=== PATIENT | male | born 1975 | race African-American/Black ===

== ENCOUNTER 2022-05-02 12:59 | Outpatient (REF) | payer OTHER, SELFPAY ==
[2022-05-02 14:19] LABS: Hematocrit 49.3 % (42.0-52.0); Hemoglobin 17.4 g/dl (14.0-18.0); Mean Corpuscular HGB Conc 35.3 g/dl (31.0-36.0); Mean Corpuscular Hemoglobin 28.6 pg (27.0-33.0); Mean Corpuscular Volume 81.1 fL (80.0-98.0); Mean Platelet Volume 10.7 fL (9.4-12.4); Platelet Count 227 X10*3/uL (160-400); Red Blood Count 6.08 X10*6/uL (4.60-5.80); Red Cell Distribution Width 11.9 % (11.0-16.0); White Blood Count 4.1 X10*3/uL (4.8-10.8)
[2022-05-02 15:01] LABS: Alanine Aminotransferase 23 U/L (0-40); Albumin Level 4.5 g/dL (3.5-5.0); Alkaline Phosphatase 100 U/L (39-117); Anion Gap 13 (12-20); Aspartate Amino Transferase 19 U/L (5-37); Bilirubin Direct 0.2 mg/dL (0.0-0.5); Bilirubin Total 0.8 mg/dL (0.0-1.0); Blood Urea Nitrogen 10 mg/dL (9-16); Calcium 9.9 mg/dL (8.4-10.2); Carbon Dioxide 30 mmol/L (22-29); Chloride 99 mmol/L (96-108); Estimated Glomerular Filt Rate > 60; Glucose Random 335 mg/dL (60-115); Potassium 4.5 mmol/L (3.3-5.1); Sodium 137 mmol/L (135-145)
== END 2022-05-02 13:00 | disposition home or self-care (01) ==
LOC: HO.HMGCLDS 12:59
PROVIDERS: Visit Provider Internal Medicine
DX: R10.9 Unspecified abdominal pain (principal)
CPT/HCPCS: 36415; 80048; 80076; 85027

== ENCOUNTER 2022-05-04 08:08 | Outpatient (REF) | payer OTHER, SELFPAY ==
[2022-05-04 13:04] LABS: Hemoglobin A1c % > 14.0 %
== END 2022-05-04 08:09 | disposition home or self-care (01) ==
LOC: HO.HMGCLDS 08:08
PROVIDERS: Visit Provider Internal Medicine
DX: E11.9 Type 2 diabetes mellitus without complications (principal)
CPT/HCPCS: 36415; 83036

== ENCOUNTER 2022-08-11 06:19 | Outpatient (REF) | payer OTHER, SELFPAY ==
[2022-08-11 12:51] LABS: Hematocrit 45.6 % (42.0-52.0); Hemoglobin 15.3 g/dl (14.0-18.0); Mean Corpuscular HGB Conc 33.6 g/dl (31.0-36.0); Mean Corpuscular Volume 86.4 fL (80.0-98.0); Mean Platelet Volume 9.7 fL (9.4-12.4); Platelet Count 270 X10*3/uL (160-400); Red Blood Count 5.28 X10*6/uL (4.60-5.80); Red Cell Distribution Width 12.6 % (11.0-16.0); White Blood Count 4.3 X10*3/uL (4.8-10.8)
[2022-08-11 13:01] LABS: Estimated Average Glucose 180 mg/dL; Hemoglobin A1c % 7.9 %
[2022-08-11 13:20] LABS: Alanine Aminotransferase 16 U/L (0-40); Alkaline Phosphatase 81 U/L (39-117); Anion Gap 12 (12-20); Aspartate Amino Transferase 19 U/L (5-37); Bilirubin Total 0.5 mg/dL (0.0-1.0); Blood Urea Nitrogen 9 mg/dL (9-16); Carbon Dioxide 26 mmol/L (22-29); Chloride 105 mmol/L (96-108); Cholesterol 193 mg/dL; Estimated Glomerular Filt Rate > 60; Glucose Fasting 181 mg/dL (60-99); HDL Cholesterol 32 mg/dL; LDL Cholesterol Calculated 123 mg/dl; Potassium 4.6 mmol/L (3.3-5.1); Sodium 138 mmol/L (135-145); Total Protein 7.3 g/dL (6.5-8.0); Triglycerides 190 mg/dL
== END 2022-08-11 06:20 | disposition home or self-care (01) ==
LOC: HO.HMGCLDS 06:19
PROVIDERS: Visit Provider Nurse Practitioner Family
DX: E11.9 Type 2 diabetes mellitus without complications (principal)
CPT/HCPCS: 36415; 80053; 80061; 83036; 85027

== ENCOUNTER → 2022-09-26 13:51 | Outpatient (BNVA) | payer OTHER, SELFPAY | PROVIDERS: PCP Nurse Practitioner Family; Visit Provider Internal Medicine Endocrinology, Diabetes & Metabolism | DX: E11.9 Type 2 diabetes mellitus without complications (principal); Z79.84 Long term (current) use of oral hypoglycemic drugs | CPT/HCPCS: 82947 ==

== ENCOUNTER 2022-12-12 08:57 | Outpatient (REF) | payer OTHER, SELFPAY ==
[2022-12-12 12:01] LABS: Creatinine Urine 240.48 mg/dL; Microalbum/Creatinine Ratio Ur 13.7 ug/mg cr
[2022-12-12 12:17] LABS: Estimated Average Glucose 140 mg/dL; Hemoglobin A1c % 6.5 %
[2022-12-16 19:13] LABS: Glutamic acid decarboxylase Ab <5 IU/mL (<5)
== END 2022-12-12 08:58 | disposition home or self-care (01) ==
LOC: HO.HMGCLDS 08:57
PROVIDERS: Absent Provider Internal Medicine Endocrinology, Diabetes & Metabolism; PCP Nurse Practitioner Family; Visit Provider Nurse Practitioner Family
DX: E11.9 Type 2 diabetes mellitus without complications (principal)
CPT/HCPCS: 36415; 82043; 83036; 86341

== ENCOUNTER 2022-12-12 13:40 | Outpatient (AMB) | payer OTHER, SELFPAY ==
--- NOTE | 2022-12-12 14:33 | A.OFFVIS_ITS ---
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 Accompanied by: Self / Same As Patient Allergies No Known Allergies Allergy (Verified 11/17/22 15:27) HPI Comprehensive Diabetes Asmnt Most Recent Diabetes Results: Microalb/Creat Ratio 13.7 ug/mg cr 12/12/22 Cholesterol 193 mg/dL 08/11/22 HDL Cholesterol 32 mg/dL 08/11/22 Triglycerides 190 mg/dL 08/11/22 Creatinine 1.15 mg/dL (0.5-1.4) 08/11/22 Blood Urea Nitrogen 9 mg/dL (9-16) 08/11/22 Sodium 138 mmol/L (135-145) 08/11/22 Potassium 4.6 mmol/L (3.3-5.1) 08/11/22 Chloride 105 mmol/L (96-108) 08/11/22 Carbon Dioxide 26 mmol/L (22-29) 08/11/22 Calcium 9.0 mg/dL (8.4-10.2) 08/11/22 AST 19 U/L (5-37) 08/11/22 ALT 16 U/L (0-40) 08/11/22 Total Protein 7.3 g/dL (6.5-8.0) 08/11/22 Albumin 4.0 g/dL (3.5-5.0) 08/11/22 [facility] Social History Housing: Apartment Patient Tobacco Use Status: Never used Tobacco e-Cigarette/Vaping Use: Never Used Second Hand Smoke Exposure: No service: No Current occupational status: employed Current occupational exposures/hazards: No Cognitive needs: No Hearing needs: No Vision needs: No Assessment & Plan Assessment & Plan (1) Diabetes mellitus: Code(s): E11.9 - Type 2 diabetes mellitus without complications Plan: Learning objectives: The patient was provided with verbal and written education on the following topics as outlined below. The patient met all learning objectives and was able to verbalize understanding and provide teach back of education topics discussed . The patient was provided with the opportunity to ask questions and all questions were answered. Patient Assessment Assess patient education level/literacy/barriers Patient questions/concerns, patient was diagnosed with diabetes in April 2022 with A1c greater than 14 %, patient's last a1c from today 6.5%. Patient reports he has made significant changes to his diet including eliminating regular soda f ruit juice and large carbohydrate portions. Patient has also bought a smart watch that uses infrared technology to read glucose through his skin. Discussed with patient that this is not an FDA appro nunu med for testing glucose. 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 This is his primary mode of physical activity What is Diabetes? Pathophysiology How the body produces and uses insulin Identify type of DM Risk factors Signs of Diabetes Brief overview of Diabetes Management Monitoring blood sugar Following a meal plan Regular exercise Maintaining a healthy weight Taking medication as needed Members of the care team (PCP, RN, MA, RD, CDE, diffusion operator) Blood glucose monitoring When/how often to test Target blood sugar ranges Patient has freestyle meter, however he uses infrared glucose watch to read his glucose Introduction to Nutrition Importance of healthy diet in managing DM Diet is personalized to individual preference Review patient?s regular diet/food preferences Who prepares meals/does food shopping/ Dining out?/ Barriers? How diet effects glucose Eating 3 balanced meals a day with small, healthy snacks between meals Review food groups Carbohydrates: What is a carbohydrate/Which food/food groups are considered carbohydrates Effect of carbohydrates on blood glucose Portion sizes Reading food labels Basic carb counting (if applicable per nursing assessment) Plate method Meal planning Recommendations: Follow plate method, consistent carbs and read nutritional labels. Smart Goal: Patient will continue to keep carbohydrate portions at meals between 45-60 g of carbs, if eating larger meals patient states he will exercise 15-20 minutes after Educational Materials: The patient was provided with the following written educational materials: Planning Healthy Meals Handout Patient Response to instructions: Comprehension of Instructions: Fair Readiness to make changes: Contemplation How confident they feel about making changes: fair Patient Instructions: Include regular daily activity. ADA recommends 30 minutes of exercise 5 days a week. Weight loss talk to PCP or Dinner Cook before starting new plan. Test blood sugar as directed; Fasting and 2hpp largest meal. Watch trends in results. Utilize results and to assess how food, physical activity and medications affect blood sugar results. Bring glucometer or CGM to next visit. Be knowledgeable about diabetes medication, its action, side effects, efficacy, toxicity, prescribed dosage, appropriate timing and frequency of administration, effect of missed and delayed doses and instructions for storage, travel and safety. Coding Level of Care Code Est Pt Level 1 (42753) Diagnoses Diabetes mellitus E11.9
== END 2022-12-12 14:36 | disposition home or self-care (01) ==
PROVIDERS: PCP Nurse Practitioner Family; Visit Provider Registered Nurse Diabetes Educator
DX: E11.9 Type 2 diabetes mellitus without complications (principal)
CPT/HCPCS: 99211

== ENCOUNTER 2023-02-05 13:59 | Outpatient (AMB) | payer OTHER, SELFPAY ==
[2023-02-05 14:08] VITALS: BMI 27.7
--- NOTE | 2023-02-05 14:08 | A.OFFVIS_ITS ---
Intake VS Expanded 02/05/23 14:08 Height 5 ft 10 in Weight 192 lb 14.472 oz BMI 27.7 Intake Visit Reasons: Diabetes Allergies No Known Allergies Allergy (Verified 11/17/22 15:27) HPI Nutrition Presentation Details Pt presents for MNT for T2DM. 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 Pt reports doing well. Reports physically active at work. Meals consist of B: water, often skips L: rice/beans/chicken or beef stew D: same as lunch snack: nuts, fruits (reports reducing on fried foods and pastries like foods) Physical activity : >1 hr per day walking/lifting eTOH: denies smoking: denies from AafrOatmeal Gabriella food frequency fruits: 2-3 /d starches > 16 serving/d fish 0-1/d, poultry /beef/eggs vegetables: prefers nons tarhcy veg dairy: 2servings/ EJR-Miodqaq-Ym.Jeor Equation Height 5 ft 10 in Weight 193 lb Resting Metabolic Rate 1749.73 Calculated Activity Level Moderate Activity Calories Needed to Maintain Weight 2712.08 Diagnosis Nutrition problem #1 food nutri know defi As related to (etiology) #1 diagnosis As evidenced by (sign/symptom) #1 no prior educ - nutri rec Monitoring/Goals Nutrition problem monitoring level of knowledge/skill Nutrition goal/outcome list 3 high fiber foods Outcome progress verbalized understanding Learning/Education Readiness to learn excellent Stages of change action Educational materials provided Yes (meal planning) Most Recent Diabetes Results: Microalb/Creat Ratio 13.7 ug/mg cr 12/12/22 Cholesterol 193 mg/dL 08/11/22 HDL Cholesterol 32 mg/dL 08/11/22 Triglycerides 190 mg/dL 08/11/22 Creatinine 1.15 mg/dL (0.5-1.4) 08/11/22 Blood Urea Nitrogen 9 mg/dL (9-16) 08/11/22 Sodium 138 mmol/L (135-145) 08/11/22 Potassium 4.6 mmol/L (3.3-5.1) 08/11/22 Chloride 105 mmol/L (96-108) 08/11/22 Carbon Dioxide 26 mmol/L (22-29) 08/11/22 Calcium 9.0 mg/dL (8.4-10.2) 08/11/22 AST 19 U/L (5-37) 08/11/22 ALT 16 U/L (0-40) 08/11/22 Total Protein 7.3 g/dL (6.5-8.0) 08/11/22 Albumin 4.0 g/dL (3.5-5.0) 08/11/22 [facility] Social History Housing: Apartment Patient Tobacco Use Status: Never used Tobacco e-Cigarette/Vaping Use: Never Used Second Hand Smoke Exposure: No service: No Current occupational status: employed Current occupational exposures/hazards: No Cognitive needs: No Hearing needs: No Vision needs: No Assessment & Plan Assessment & Plan (1) Diabetes mellitus: Code(s): E11.9 - Type 2 diabetes mellitus without complications Plan: wt: 88 kg Est kcal needs as per MSJ: 2700 (40% carb, 30% protein/fat) Est fluid needs as per 25-30 ml/d: 2200 Est prot per day as per 1 g/kg bw: 88 Recommend fiber intake : 8-10 g per day and gradually increase to 25-28 g per day for women and 35-38 g for men or as tolerated Recommend sodium intake per day : less than 2000 mg Educated patient on: ( R = reviewed V = verbalizes understanding N/R = needs review N/A = not applicable * Food sources of carbohydrate, adequate serving sizes and its role in various health conditions: R * Differences between complex carbohydrates a simple carbohydrates, role of fiber in diet: R * Differences between types of fats and role in diet (mono on saturated fat fatty acids, saturated fatty acids, trans fats): NR * Food sources of sodium in salt and healthy modifications for heart health in kidney health: NR * Healthy plate method concept: R * Physical activity: Benefits a precaution: R V * Hypoglycemia protocol (rule of 15): R * Dietary prevention of Hyperglycemia: R Patient Instructions: Follow healthy plate method , including fiber rich foods keep hydrated by having water with meals include at least 2 servings of calcium in your diet (milk/yogurt/seeds/beans/lentils/chickpeas, canned fishwith bones) Coding Level of Care Code Nutr Indiv Intake (48075) Diagnoses Diabetes mellitus E11.9
[2023-02-12 21:40] VITALS: BMI 27.7
== END 2023-02-05 14:37 | disposition home or self-care (01) ==
PROVIDERS: PCP Nurse Practitioner Family; Visit Provider Dietitian, Registered
DX: E11.9 Type 2 diabetes mellitus without complications (principal)

== ENCOUNTER → 2023-02-05 13:59 | Outpatient (BNVA) | payer OTHER, SELFPAY | PROVIDERS: Visit Provider Dietitian, Registered | DX: E11.9 Type 2 diabetes mellitus without complications (principal); Z71.3 Dietary counseling and surveillance | CPT/HCPCS: 97802 ==

== ENCOUNTER 2023-02-20 13:06 | Outpatient (AMB) | payer OTHER, SELFPAY ==
[2023-02-20 13:17] VITALS: BP 120/70; PULSE 76; RESP 12; TEMP 36.2; O2SAT 97; BMI 28.0
--- NOTE | 2023-02-20 13:17 | MHC.PC.OV ---
Vital Signs 02/20/23 13:17 Height 5 ft 10 in Weight 195 lb 4 oz BMI 28.0 BP 120/70 Blood Pressure Location Rt brachial Position Sitting Respiration 12 Pulse 76 Temp 97.2 F Temp Source Temporal Artery Scan Pulse Oximetry (%) 97 Oxygen Delivery Method Room Air Intake Visit Reasons: 3 mos DM2 Intake Note: Patient states that when he turns his head left he feels pain in his neck into shoulder and usually its right after he wakes up. Patient believes it may be due to him sleeping a certain way. Last A1c done on 12/12/22 and was a 6.5%. 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 Accompanied by: Self / Same As Patient Allergies No Known Allergies Allergy (Verified 02/20/23 13:40) Medication List - Last Reconciled 02/20/23 by Jose Luis Antony CNP blood sugar diagnostic (FreeStyle Lite Strips) As directed tests 4 X/day blood-glucose meter (FreeStyle Lite Meter kit) As directed tests 4 X/day glipizide 5 mg PO DAILY 30 days lancets (FreeStyle Lancets) As directed tests 4 X/day metformin 1,000 mg PO BIDWMEAL 30 days pantoprazole 40 mg PO DAILY 90 days Tobacco use date assessed: 02/20/23 Dental Screening Dental Screen Date: 02/20/23 Did you have a dental visit in the last 12 months?: No Did you have a dental problem in the last 6 months where you did not have access to dental care?: No Was dental information given to patient?: Patient has dentist HPI HPI Comments History of Present Illness Details 47-year-old male presents for diabetes follow-up His last A1c in November was 6.5% He is on metformin and glipizide which he admits to taking as prescribed He reports intermittent left-sided neck pain, with head rotation to the left, upon waking up and of an resolves shortly. No current symptoms. [facility] [place] Medical History (Updated 02/20/23 @ 13:56 by Jose Luis Antony CNP) No pertinent past medical history Surgical History (Updated 02/20/23 @ 13:25 by Marcia Cowan MA) No pertinent past surgical history Social History Housing: Apartment Patient Tobacco Use Status: Never used Tobacco e-Cigarette/Vaping Use: Never Used Second Hand Smoke Exposure: No service: No Current occupational status: employed Current occupation: [employer] Current occupational exposures/hazards: No Cognitive needs: No Hearing needs: No Vision needs: No Review of Systems Const Details: Const Denies chills, Denies fatigue, Denies fever(s), Denies headache(s) and Denies weakness ENT Denies dizziness and Denies headache(s) Card Denies chest pain, Denies lightheadedness, Denies dyspnea and Denies other (Palpitations) Resp Denies cough, Denies dyspnea, Denies wheezing and Denies other ( shortness of breath) GI Denies abdominal pain, Denies melena, Denies hematochezia, Denies change in bowel habits, Denies dyspepsia and Denies nausea Denies hematuria and Denies dysuria Musc Denies abnormal gait, Denies myalgias, Denies arthralgias, Denies numbness and Denies tingling Skin/Breast Denies rash, Denies unusual bruising and Denies wounds Neuro Denies abnormal gait, Denies dizziness, Denies headache(s), Denies memory loss, Denies numbness, Denies Sensory deficit (Neuro), Denies tingling and Denies weakness Psych Denies anxiety, Denies depression, Denies memory loss Endo Denies cold intolerance, Denies fatigue, Denies heat intolerance, Denies polydipsia and Denies polyuria Aller/Immun Denies wheezing Physical exam (Primary Care) Vital Signs: Last Vital Signs Temp 97.2 F 02/20/23 13:17 Pulse 76 02/20/23 13:17 Resp 12 02/20/23 13:17 BP 120/70 02/20/23 13:17 Pulse Ox 97 02/20/23 13:17 Oxygen Delivery Method Room Air 02/20/23 13:17 BMI result Body Mass Index 28.0 Tobacco/Smoking Status: Tobacco use Status Tobacco use date assessed 02/20/23 02/20/23 13:26 Patient Tobacco Use Status Never used Tobacco 02/20/23 13:17 e-Cigarette/Vaping Use Never Used 02/20/23 13:17 Const Other: General: no acute distress and well developed Nutritional Appearance: well nourished Orientation/consciousness: patient oriented x3 HENMT Head: Yes normocephalic and Yes atraumatic Eyes General: appearance normal, both eyes and all related structures Pupils: Equal, round and reactive pupils present EOM: EOMs intact bilaterally Resp Effort & Inspection: normal respiratory effort Auscultation: clear to auscultation bilaterally Cardio Rate: regular rate Rhythm: regular rhythm Heart sounds: S1 normal heart sound present, S2 normal heart sound present, no gallops, no murmurs and no rubs GI Palpation (GI): No Abdominal aortic bruit present, Soft to palpation, nontender, No hepatosplenomegaly present and No Rebound tenderness present Auscultation: normal bowel sounds General: Yes no CVA tenderness Back/Spine/Pelvis Back: no CVA tenderness Cervical Spine: cervical ROM normal and No Cervical spine tenderness Thoracic/Lumbar Spine: thoraco-lumbar ROM normal, No pain with thoraco-lumbar ROM, No thoracic spinal tenderness and No lumbar spinal tenderness Extrem General: Yes normal to inspection, No edema and No calf tenderness Skin General: warm and dry. Normal skin color. Normal skin turgor Lesions: no lesions Rashes: no rashes Trauma: no lacerations or abrasions Wounds: no wounds Nails: normal Neuro General: patient oriented x3, gait normal and no focal neuro deficit Cranial nerves: Yes Equal, round and reactive pupils present Cognition (Neuro): normal cognition Gait exam (Neuro): Normal gait present Sensory Exam: No Sensory deficit (Neuro) Psych Appearance: grossly normal Affect: normal affect Attitude: cooperative Thought process: Normal thought process present Assessment and Plan Assessment & Plan (1) Diabetes mellitus: Code(s): E11.9 - Type 2 diabetes mellitus without complications Plan: His last A1c was in November and was 6.5%, within goal of less than 7.0% He had an eye exam in June 2022 and schedule to have a normal eye exams Continue to take glipizide and metformin as prescribed ADA diet and routine exercise encouraged Will check LP. Advise to get fasting blood work done before his next visit Follow-up in 1 month for A1c check Return with symptoms or concerns Verbalized understanding and agreed with treatment plan (2) Neck pain on left side: Code(s): M54.2 - Cervicalgia Plan: He reports intermittent left-sided neck pain, with head rotation to the left, upon waking up and of an resolves shortly. No current symptoms Likely due to neck strain from sleep in in an awkward position Advised to sleep on pillows that will keep is neck in normal alignment Warm compresses and stretching encouraged May take Tylenol or Motrin for pain or discomfort Return with worsening or new symptoms Verbalized understanding and agreed with treatment plan. Orders: Orders Lipid Panel 1 Month E11.9 - Type 2 diabetes mellitus without complications Coding Level of Care Code Est Pt Level 3 (51085) Diagnoses Diabetes mellitus E11.9 Neck pain on left side M54.2
== END 2023-02-20 13:53 | disposition home or self-care (01) ==
PROVIDERS: PCP Nurse Practitioner Family; Visit Provider Nurse Practitioner Family
DX: E11.9 Type 2 diabetes mellitus without complications (principal); M54.2 Cervicalgia
CPT/HCPCS: 99213

== ENCOUNTER 2023-03-06 13:30 | Outpatient (AMB) | payer OTHER, SELFPAY ==
[2023-03-06 13:37] VITALS: BP 128/68; PULSE 80; BMI 28.2
--- NOTE | 2023-03-06 13:37 | MHC.OFFVIS ---
Intake Vital Signs 03/06/23 13:37 Height 5 ft 10 in Weight 196 lb 13.965 oz BMI 28.2 BP 128/68 Blood Pressure Location Lt brachial Position Sitting Pulse 80 Pulse Source Pulse Oximeter Intake Visit Reasons: f/u diabetes, voicemail Intake Note: Patient present today to follow up on Type 2 Diabetes Mellitus. 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 Initially diagnosed with T2DM in last yr . Was initially started on treatment with metformin and glipizide . Current regimen metformin 1000 mg BID Gipizide 5 mg QD . Unfortunately, patient did not bring meter or log book to follow-up visit Not Reports low sugars . No Family history of T2DM Has eyes checked yearly, last eye exam last mo , denies retinopathy. Denies neuropathy,Not sees podiatry. Denies nephropathy,Not on CHRISTA/ARB. Not Has HLD, Not on statin. Denies CAD. Met with diabetes education. [facility] Medical History (Updated 02/20/23 @ 13:56 by Jose Luis Antony CNP) No pertinent past medical history Surgical History (Updated 02/20/23 @ 13:25 by Marcia Cowan MA) No pertinent past surgical history Social History Housing: Apartment Patient Tobacco Use Status: Never used Tobacco e-Cigarette/Vaping Use: Never Used Second Hand Smoke Exposure: No service: No Current occupational status: employed Current occupation: [employer] Current occupational exposures/hazards: No Cognitive needs: No Hearing needs: No Vision needs: No Physical Exam Vital Signs: Last Vital Signs Pulse 80 03/06/23 13:37 BP 128/68 03/06/23 13:37 BMI result Body Mass Index 28.2 Absence of Cushingoid features. Absence of acromegalic features. Neck exam reveals nl size thyroid about 15 gms. No thyroid nodules palpable. No carotid bruits present. Lungs CTA. Heart S1 S2, Reg R/R. No M/R/ G. Skin exam reveals absence of vitiligo or acanthosis nigricans. Abdominal exam reveals Soft NT/ND with NA BS. No organomegaly present. Neck Other: . Extrem Other: Visual exam of foot performed. No ulcerations or open lesions. No onchomycosis, no callouses.Pulses 2 + distally Sensation intact to monofilament exam. Vibratory sensation sensed is intact with 128 Hz tuning fork Assessment & Plan Assessment & Plan (1) Diabetes mellitus: Code(s): E11.9 - Type 2 diabetes mellitus without complications Plan: This is a 47-year-old black male with a history of Type 2 diabetes being treated metformin and glipizide with good improved glycemic control and no known microvascular or macrovascular complications. The plan is to continue the current regimen. At this point, patient returned to the care of his primary care provider and back to endocrinology should his HbA1c deteriorate Orders: Orders AMB Hemoglobin A1c Today E11.9 - Type 2 diabetes mellitus without complications Medications: Refilled blood sugar diagnostic (FreeStyle Lite Strips) As directed tests 4 X/day 100 ea 5RF blood-glucose meter (FreeStyle Lite Meter kit) As directed tests 4 X/day 1 ea 0RF Coding Level of Care Code Est Pt Level 4 (46788) Diagnoses Diabetes mellitus E11.9
== END 2023-03-06 14:09 | disposition home or self-care (01) ==
PROVIDERS: PCP Nurse Practitioner Family; Visit Provider Internal Medicine Endocrinology, Diabetes & Metabolism
DX: E11.9 Type 2 diabetes mellitus without complications (principal)
CPT/HCPCS: 99214

== ENCOUNTER → 2023-03-06 13:30 | Outpatient (BNVA) | payer OTHER, SELFPAY | PROVIDERS: PCP Nurse Practitioner Family; Visit Provider Internal Medicine Endocrinology, Diabetes & Metabolism | DX: E11.9 Type 2 diabetes mellitus without complications (principal); Z79.84 Long term (current) use of oral hypoglycemic drugs | CPT/HCPCS: 82947; 83036 ==

== ENCOUNTER 2023-05-17 11:23 | Outpatient (AMB) | payer OTHER, SELFPAY ==
[2023-05-17 11:28] VITALS: BP 126/68; PULSE 85; RESP 13; TEMP 36.5; O2SAT 98; BMI 28.7
--- NOTE | 2023-05-17 11:28 | A.OFFPC_ITS ---
Vital Signs 05/17/23 11:28 Height 5 ft 10 in Weight 200 lb 6 oz BMI 28.7 BP 126/68 Blood Pressure Location Rt brachial Position Sitting Respiration 13 Pulse 85 Pulse Source Pulse Oximeter Temp 97.7 F Temp Source Temporal Artery Scan Pulse Oximetry (%) 98 Oxygen Delivery Method Room Air Intake Visit Reasons: DM, rescheduled from 04/17 Intake Note: Patient would like to discuss pain in shoulder when he turns his head if here is time. 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 by: Self / Same As Patient Allergies No Known Allergies Allergy (Verified 05/17/23 11:37) Medication List - Last Reconciled 05/17/23 by Jose Luis Antony CNP blood sugar diagnostic (FreeStyle Lite Strips) As directed tests 4 X/day blood-glucose meter (FreeStyle Lite Meter kit) As directed tests 4 X/day glipizide 5 mg PO DAILY 30 days lancets (FreeStyle Lancets) As directed tests 4 X/day metformin 1,000 mg PO BIDWMEAL 30 days pantoprazole 40 mg PO DAILY 90 days Tobacco use date assessed: 02/20/23 Dental Screening Dental Screen Date: 05/17/23 Did you have a dental visit in the last 12 months?: No Did you have a dental problem in the last 6 months where you did not have access to dental care?: No Was dental information given to patient?: Patient has dentist HPI HPI Comments History of Present Illness Details 47-year-old male presents for diabetes f ollow-up He is currently on metformin 1000 mg twice daily and glipizide 5 mg daily. He admits to taking his medications as prescribed without adverse reactions He was seen by endocrinology on 03/06/2023. His A1c was 7.1%. He was advised to continue current treatment regimen and follow-up with his PCP for his diabetes He reports intermittent left-sided neck pain, with head rotation to the left. His symptoms have been ongoing since January but has significantly improved. [facility] Medical History (Updated 02/20/23 @ 13:56 by Jose Luis Antony CNP) No pertinent past medical history Surgical History No pertinent past surgical history Social History Housing: Apartment Patient Tobacco Use Status: Never used Tobacco e-Cigarette/Vaping Use: Never Used Second Hand Smoke Exposure: No service: No Current occupational status: employed Current occupation: [employer] Current occupational exposures/hazards: No Cognitive needs: No Hearing needs: No Vision needs: No Review of Systems Const Details: Const Denies chills, Denies fatigue, Denies fever(s), Denies headache(s) and Denies weakness ENT Denies dizziness and Denies headache(s) Card Denies chest pain, Denies lightheadedness, Denies dyspnea and Denies other (Palpitations) Resp Denies cough, Denies dyspnea, Denies wheezing and Denies other ( shortness of breath) GI Denies abdominal pain, Denies melena, Denies hematochezia, Denies change in bowel habits, Denies dyspepsia and Denies nausea Denies hematuria and Denies dysuria Musc Denies abnormal gait, Denies myalgias, Denies arthralgias, Denies numbness and Denies tingling Skin/Breast Denies rash, Denies unusual bruising and Denies wounds Neuro Denies abnormal gait, Denies dizziness, Denies headache(s), Denies memory loss, Denies numbness, Denies Sensory deficit (Neuro), Denies tingling and Denies weakness Psych Denies anxiety, Denies depression, Denies memory loss Endo Denies cold intolerance, Denies fatigue, Denies heat intolerance, Denies polydipsia and Denies polyuria Aller/Immun Denies wheezing Physical exam (Primary Care) Tobacco/Smoking Status: Tobacco use Status Tobacco use date assessed 02/20/23 02/20/23 13:26 Patient Tobacco Use Status Never used Tobacco 02/20/23 13:17 e-Cigarette/Vaping Use Never Used 02/20/23 13:17 Const Other: General: no acute distress and well developed Nutritional Appearance: well nourished Orientation/consciousness: patient oriented x3 HENMT Head: Yes normocephalic and Yes atraumatic Eyes General: appearance normal, both eyes and all related structures Pupils: Equal, round and reactive pupils present EOM: EOMs intact bilaterally Resp Effort & Inspection: normal respiratory effort Auscultation: clear to auscultation bilaterally Cardio Rate: regular rate Rhythm: regular rhythm Heart sounds: S1 normal heart sound present, S2 normal heart sound present, no gallops, no murmurs and no rubs GI Palpation (GI): No Abdominal aortic bruit present, Soft to palpation, nontender, No hepatosplenomegaly present and No Rebound tenderness present Auscultation: normal bowel sounds General: Yes no CVA tenderness Back/Spine/Pelvis Back: no CVA tenderness Cervical Spine: cervical ROM normal and No Cervical spine tenderness Thoracic/Lumbar Spine: thoraco-lumbar ROM normal, No pain with thoraco-lumbar ROM, No thoracic spinal tenderness and No lumbar spinal tenderness Extrem General: Yes normal to inspection, No edema and No calf tenderness Skin General: warm and dry. Normal skin color. Normal skin turgor Neuro General: patient oriented x3, gait normal and no focal neuro deficit Cranial nerves: Yes Equal, round and reactive pupils present Cognition (Neuro): normal cognition Gait exam (Neuro): Normal gait present Sensory Exam: No Sensory deficit (Neuro) Psych Appearance: grossly normal Affect: normal affect Attitude: cooperative Thought process: Normal thought process present Assessment and Plan Assessment & Plan (1) Diabetes mellitus: Code(s): E11.9 - Type 2 diabetes mellitus without complications Plan: Recent A1c on 03/06/2023 was 7.1%, slightly above goal of less than 7.0% Continue to take glipizide and metformin as prescribed ADA diet and routine exercise encouraged Follow-up in 1 month or return sooner with symptoms or concerns Verbalized understanding and agreed with treatment plan (2) Neck pain on left side: Code(s): M54.2 - Cervicalgia Plan: Reports intermittent left-sided neck pain, with head rotation to the left. His symptoms have been ongoing since January but has significantly improved Likely muscle strain from poor sleep in position Naproxen ordered. Take as prescribed Warm compresses encouraged Follow-up with worsening or new symptoms Verbalized understanding and agreed with treatment plan Medications: New naproxen 500 mg PO BID PRN 60 tabs 2RF pain Refilled metformin 1,000 mg PO BIDWMEAL 60 tabs 3RF 30 days glipizide take with meal 5 mg PO DAILY 30 tabs 3RF 30 days Coding Level of Care Code Est Pt Level 3 (31532) Diagnoses Diabetes mellitus E11.9 Neck pain on left side M54.2
== END 2023-05-17 11:49 | disposition home or self-care (01) ==
PROVIDERS: PCP Nurse Practitioner Family; Visit Provider Nurse Practitioner Family
DX: E11.9 Type 2 diabetes mellitus without complications (principal); M54.2 Cervicalgia
CPT/HCPCS: 99213

== ENCOUNTER 2023-06-18 11:26 | Outpatient (AMB) | payer OTHER, SELFPAY ==
[2023-06-18 11:36] VITALS: BP 128/64; PULSE 79; RESP 13; TEMP 36.6; O2SAT 98; BMI 28.8
--- NOTE | 2023-06-18 11:36 | MHC.PC.OV ---
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 by: Self / Same As Patient Allergies No Known Allergies Allergy (Verified 06/18/23 11:44) Tobacco use date assessed: 06/18/23 Dental Screening Dental Screen Date: 06/18/23 Did you have a dental visit in the last 12 months?: No Did you have a dental problem in the last 6 months where you did not have access to dental care?: No Was dental information given to patient?: Patient has dentist HPI HPI Comments History of Present Illness Details 47-year-old male presents for diabetes follow-up He admits to taking his medications as prescribed without adverse reactions His last A1c was 7.1% He offers no complaints and denies acute symtpoms He requests a cheaper alternative for pantoprazole as there is recent increase in cost PFSH Medical History No pertinent past medical history Surgical History No pertinent past surgical history Social History Housing: Apartment Patient Tobacco Use Status: Never used Tobacco e-Cigarette/Vaping Use: Never Used Second Hand Smoke Exposure: No service: No Current occupational status: employed Current occupation: [employer] Current occupational exposures/hazards: No Cognitive needs: No Hearing needs: No Vision needs: No Review of Systems Const Details: Const Denies chills, Denies fatigue, Denies fever(s), Denies headache(s) and Denies weakness ENT Denies dizziness and Denies headache(s) Card Denies chest pain, Denies lightheadedness, Denies dyspnea and Denies other (Palpitations) Resp Denies cough, Denies dyspnea, Denies wheezing and Denies other ( shortness of breath) GI Denies abdominal pain, Denies melena, Denies hematochezia, Denies change in bowel habits, Denies dyspepsia and Denies nausea Denies hematuria and Denies dysuria Musc Denies abnormal gait, Denies myalgias, Denies arthralgias, Denies numbness and Denies tingling Skin/Breast Denies rash, Denies unusual bruising and Denies wounds Neuro Denies abnormal gait, Denies dizziness, Denies headache(s), Denies memory loss, Denies numbness, Denies Sensory deficit (Neuro), Denies tingling and Denies weakness Psych Denies anxiety, Denies depression, Denies memory loss Endo Denies cold intolerance, Denies fatigue, Denies heat intolerance, Denies polydipsia and Denies polyuria Aller/Immun Denies wheezing Physical exam (Primary Care) Vital Signs: Last Vital Signs Temp 97.9 F 06/18/23 11:36 Pulse 79 06/18/23 11:36 Resp 13 06/18/23 11:36 BP 128/64 06/18/23 11:36 Pulse Ox 98 06/18/23 11:36 Oxygen Delivery Method Room Air 06/18/23 11:36 BMI result Body Mass Index 28.8 Tobacco/Smoking Status: Tobacco use Status Tobacco use date assessed 06/18/23 06/18/23 11:46 Patient Tobacco Use Status Never used Tobacco 06/18/23 11:43 e-Cigarette/Vaping Use Never Used 06/18/23 11:43 Const Other: General: no acute distress and well developed Nutritional Appearance: well nourished Orientation/consciousness: patient oriented x3 HENMT Head: Yes normocephalic and Yes atraumatic Eyes General: appearance normal, both eyes and all related structures Pupils: Equal, round and reactive pupils present EOM: EOMs intact bilaterally Resp Effort & Inspection: normal respiratory effort Auscultation: clear to auscultation bilaterally Cardio Rate: regular rate Rhythm: regular rhythm Heart sounds: S1 normal heart sound present, S2 normal heart sound present, no gallops, no murmurs and no rubs GI Palpation (GI): No Abdominal aortic bruit present, Soft to palpation, nontender, No hepatosplenomegaly present and No Rebound tenderness present Auscultation: normal bowel sounds General: Yes no CVA tenderness Back/Spine/Pelvis Back: no CVA tenderness Cervical Spine: cervical ROM normal and No Cervical spine tenderness Thoracic/Lumbar Spine: thoraco-lumbar ROM normal, No pain with thoraco-lumbar ROM, No thoracic spinal tenderness and No lumbar spinal tenderness Extrem General: Yes normal to inspection, No edema and No calf tenderness Skin General: warm and dry. Normal skin color. Normal skin turgor Lesions: no lesions Rashes: no rashes Trauma: no lacerations or abrasions Wounds: no wounds Nails: normal Neuro General: patient oriented x3, gait normal and no focal neuro deficit Cranial nerves: Yes Equal, round and reactive pupils present Cognition (Neuro): normal cognition Gait exam (Neuro): Normal gait present Sensory Exam: No Sensory deficit (Neuro) Psych Appearance: grossly normal Affect: normal affect Attitude: cooperative Thought process: Normal thought process present Results AMB Hemoglobin A1c AMB Hemoglobin A1c 7.0 % Last Edit by Marcia Cowan MA on 06/18/23 12:04 Results Reviewed Results Reviewed: Laboratory Last Values Hgb A1c (Clinic) 7.0 % (4.0-6.0) H 06/18/23 12:03 Assessment and Plan Assessment & Plan (1) Diabetes mellitus: Code(s): E11.9 - Type 2 diabetes mellitus without complications Plan: A1c today is 7.0%, slightly above goal of less than 7.0% Will increase glipizide to 10 mg daily. Take as prescribed Continue to take metformin as prescribed ADA diet and routine exercise encouraged Follow-up in 3 months or return sooner with symptoms or concerns Verbalized understanding and agreed with treatment plan Pantoprazole replaced with omeprazole Orders: Orders AMB Hemoglobin A1c Today E11.9 - Type 2 diabetes mellitus without complications Medications: New glipizide 10 mg PO DAILY 90 tabs 1RF 90 days omeprazole 20 mg PO DAILY 90 caps 1RF 90 days Discontinued pantoprazole Discontinued Reason: Doctor's Order 40 mg PO DAILY 90 tabs 3RF 90 days glipizide take with meal Discontinued Reason: Doctor's Order 5 mg PO DAILY 30 tabs 3RF 30 days Coding Level of Care Code Est Pt Level 3 (08030) Diagnoses Diabetes mellitus E11.9
== END 2023-06-18 12:29 | disposition home or self-care (01) ==
PROVIDERS: PCP Nurse Practitioner Family; Visit Provider Nurse Practitioner Family
DX: E11.9 Type 2 diabetes mellitus without complications (principal)
CPT/HCPCS: 83036; 99213

== ENCOUNTER 2023-09-17 11:17 | Outpatient (AMB) | payer OTHER, SELFPAY ==
[2023-09-17 11:24] VITALS: BP 114/66; PULSE 76; RESP 13; TEMP 36.4; O2SAT 99; BMI 29.0
--- NOTE | 2023-09-17 11:24 | A.OFFPC_ITS ---
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 by: Self / Same As Patient Allergies No Known Allergies Allergy (Verified 09/17/23 11:37) Medication List - Last Reconciled 09/17/23 by Jose Luis Antony CNP blood sugar diagnostic (FreeStyle Lite Strips) As directed tests 4 X/day blood-glucose meter (FreeStyle Lite Meter kit) As directed tests 4 X/day glipizide 10 mg PO DAILY 90 days lancets (FreeStyle Lancets) As directed tests 4 X/day metformin 1,000 mg PO BIDWMEAL 30 days naproxen 500 mg PO BID PRN omeprazole 20 mg PO DAILY 90 days Tobacco use date assessed: 09/17/23 Dental Screening Dental Screen Date: 09/17/23 Did you have a dental visit in the last 12 months?: No Did you have a dental problem in the last 6 months where you did not have access to dental care?: No Was dental information given to patient?: Patient has dentist HPI HPI Comments History of Present Illness Details 48-year-old male presents for diabetes f ollow-up He admits to taking his medications as prescribed without adverse reactions His last A1c was 7.0% He notes that his last eye exam with [facility] was a year ago. He has a f/u appt for an eye exam later this month He offers no complaints and denies acute symptoms [facility] Medical History No pertinent past medical history Surgical History No pertinent past surgical history Social History Housing: Apartment Patient Tobacco Use Status: Never used Tobacco e-Cigarette/Vaping Use: Never Used Second Hand Smoke Exposure: No service: No Current occupational status: employed Current occupation: [employer] Current occupational exposures/hazards: No Cognitive needs: No Hearing needs: No Vision needs: No Review of Systems Const Details: Const Denies chills, Denies fatigue, Denies fever(s), Denies headache(s) and Denies weakness ENT Denies dizziness and Denies headache(s) Card Denies chest pain, Denies lightheadedness, Denies dyspnea and Denies other (Palpitations) Resp Denies cough, Denies dyspnea, Denies wheezing and Denies other ( shortness of breath) GI Denies abdominal pain, Denies melena, Denies hematochezia, Denies change in bowel habits, Denies dyspepsia and Denies nausea Denies hematuria and Denies dysuria Musc Denies abnormal gait, Denies myalgias, Denies arthralgias, Denies numbness and Denies tingling Skin/Breast Denies rash, Denies unusual bruising and Denies wounds Neuro Denies abnormal gait, Denies dizziness, Denies headache(s), Denies memory loss, Denies numbness, Denies Sensory deficit (Neuro), Denies tingling and Denies weakness Psych Denies anxiety, Denies depression, Denies memory loss Endo Denies cold intolerance, Denies fatigue, Denies heat intolerance, Denies polydipsia and Denies polyuria Aller/Immun Denies wheezing Physical exam (Primary Care) Vital Signs: Last Vital Signs Temp 97.6 F 09/17/23 11:24 Pulse 76 09/17/23 11:24 Resp 13 09/17/23 11:24 BP 114/66 09/17/23 11:24 Pulse Ox 99 09/17/23 11:24 Oxygen Delivery Method Room Air 09/17/23 11:24 BMI result Body Mass Index 29.0 Tobacco/Smoking Status: Tobacco use Status Tobacco use date assessed 09/17/23 09/17/23 11:32 Patient Tobacco Use Status Never used Tobacco 09/17/23 11:29 e-Cigarette/Vaping Use Never Used 09/17/23 11:29 Const Other: General: no acute distress and well developed Nutritional Appearance: well nourished Orientation/consciousness: patient oriented x3 HENMT Head: Yes normocephalic and Yes atraumatic Eyes General: appearance normal, both eyes and all related structures Pupils: Equal, round and reactive pupils present EOM: EOMs intact bilaterally Resp Effort & Inspection: normal respiratory effort Auscultation: clear to auscultation bilaterally Cardio Rate: regular rate Rhythm: regular rhythm Heart sounds: S1 normal heart sound present, S2 normal heart sound present, no gallops, no murmurs and no rubs GI Palpation (GI): No Abdominal aortic bruit present, Soft to palpation, nontender, No hepatosplenomegaly present and No Rebound tenderness present Auscultation: normal bowel sounds General: Yes no CVA tenderness Back/Spine/Pelvis Back: no CVA tenderness Cervical Spine: cervical ROM normal and No Cervical spine tenderness Thoracic/Lumbar Spine: thoraco-lumbar ROM normal, No pain with thoraco-lumbar ROM, No thoracic spinal tenderness and No lumbar spinal tenderness Extrem General: Yes normal to inspection, No edema and No calf tenderness Skin General: warm and dry. Normal skin color. Normal skin turgor Lesions: no lesions Rashes: no rashes Trauma: no lacerations or abrasions Wounds: no wounds Nails: normal Neuro General: patient oriented x3, gait normal and no focal neuro deficit Cranial nerves: Yes Equal, round and reactive pupils present Cognition (Neuro): normal cognition Gait exam (Neuro): Normal gait present Sensory Exam: No Sensory deficit (Neuro) Psych Appearance: grossly normal Affect: normal affect Attitude: cooperative Thought process: Normal thought process present Results AMB Hemoglobin A1c AMB Hemoglobin A1c 6.6 % Last Edit by BARNEY Sanchez on 09/17/23 11:5 0 Assessment and Plan Assessment & Plan (1) Diabetes mellitus: Code(s): E11.9 - Type 2 diabetes mellitus without complications Plan: A1c today 6.6%, within goal of less than 7.0%. 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 Advised to fast for at least 10 hours before getting labs drawn. May drink water Verbalized understanding and agreed with treatment plan. Orders: Orders AMB Hemoglobin A1c Today E11.9 - Type 2 diabetes mellitus without complications Complete Blood Count Auto Diff Today Z00.00 - Encounter for general adult medical examination without abnormal findings Lipid Panel Today Z00.00 - Encounter for general adult medical examination without abnormal findings Comprehensive [place]. Panel Fast Today Z00.00 - Encounter for general adult medical examination without abnormal findings TSH reflex Free T4 Today Z00.00 - Encounter for general adult medical examination without abnormal findings UA CC w/rflx Micro + Cult Today Z00.00 - Encounter for general adult medical examination without abnormal findings PSA, Ultra Sensitive Today Z00.00 - Encounter for general adult medical examination without abnormal findings Coding Level of Care Code Est Pt Level 4 (61896) Diagnoses Diabetes mellitus E11.9 Laboratory tests ordered as part of a complete physical exam (CPE) Z00.00
== END 2023-09-17 11:58 | disposition home or self-care (01) ==
LOC: HO.HMGFM 11:21
PROVIDERS: PCP Nurse Practitioner Family; Visit Provider Nurse Practitioner Family
DX: E11.9 Type 2 diabetes mellitus without complications (principal); Z00.00 Encounter for general adult medical examination without abnormal findings
CPT/HCPCS: 83036; 99214

== ENCOUNTER 2023-10-26 10:26 | Outpatient (AMB) | payer OTHER, SELFPAY ==
--- NOTE | 2023-10-26 10:32 | MHC.PC.OV ---
Vital Signs 10/26/23 10:34 Height 5 ft 10 in Weight 199 lb 2 oz BMI 28.6 BP 130/68 Blood Pressure Location Rt brachial Position Sitting Respiration 14 Pulse 88 Pulse Source Pulse Oximeter Temp 97.8 F Temp Source Temporal Artery Scan Pulse Oximetry (%) 99 Oxygen Delivery Method Room Air Intake Visit Reasons: CPE Marketing Research Coordinator Required: No Accompanied by: Self / Same As Patient Allergies No Known Allergies Allergy (Verified 10/26/23 10:43) Medication List - Last Reconciled 10/26/23 by Jose Luis Antony CNP blood sugar diagnostic (FreeStyle Lite Strips) As directed tests 4 X/day blood-glucose meter (FreeStyle Lite Meter kit) As directed tests 4 X/day glipizide 10 mg PO DAILY 90 days lancets (FreeStyle Lancets) As directed tests 4 X/day metformin 1,000 mg PO BIDWMEAL 30 days naproxen 500 mg PO BID PRN omeprazole 20 mg PO DAILY 90 days Tobacco use date assessed: 10/26/23 Dental Screening Dental Screen Date: 10/26/23 Did you have a dental visit in the last 12 months?: No Did you have a dental problem in the last 6 months where you did not have access to dental care?: No Was dental information given to patient?: Patient has dentist HPI HPI Comments History of Present Illness Details 48-year-old male presents for an extended physical exam He has history of diabetes. He admits to taking his medication as prescribed without adverse reactions He did not get lab work done as instructed for this visit He offers no complaints and denies acute symptoms at this time Last eye exam was in 06/2022: normal He has never had a colonoscopy done He has not been vaccinated for shingles He is up-to-date on the flu vaccine [facility] Medical History No pertinent past medical history Surgical History No pertinent past surgical history Social History Housing: Apartment Patient Tobacco Use Status: Never used Tobacco e-Cigarette/Vaping Use: Never Used Second Hand Smoke Exposure: No service: No Current occupational status: employed Current occupation: [employer] Current occupational exposures/hazards: No Cognitive needs: No Hearing needs: No Vision needs: No Questionnaire PHQ-9 Over the last 2 weeks, how often have you been bothered by any of the following problems? 1. Little interest or pleasure in doing things: not at all 2. Feeling down, depressed, or hopeless: not at all 3. Trouble falling or staying asleep, or sleeping too much: not at all 4. Feeling tired or having little energy: not at all 5. Poor appetite or overeating: not at all 6. Feeling bad about yourself - or that you are a failure or have let yourself or your family down: not at all 7. Trouble concentrating on things, such as reading the newspaper or watching television: not at all 8. Moving or speaking so slowly that other people could have noticed. Or the opposite - being so fidgety or restless that you have been moving around a lot more than usual: not at all 9. Thoughts that you would be better off or of hurting yourself in some way: not at all Total score: 0 Depression Screening Interpretation: Negative Depression Screening Done: Yes 62824 - PHQ-9 Billing: Yes Source: Developed by Drs. Farhad Garber, Aliza Garcia, Darío Asif and colleagues, with an educational aracelis from [employer]. Thrive Questionnaire Date Thrive assessed: 10/26/23 I am a: Patient What is your living situation today?: I have a steady place to live Within the past 12 months, did the food you bought not last and you didn't have the money to get more?: Never true Within the past 12 months, did you worry whether your food would run out before you got money to buy more?: Never true Do you have trouble paying for medicines?: No Do you have trouble getting transportation to medical appointments?: No Do you have trouble paying your heating and electricity bill?: No Do you have trouble taking care of your child, family member or friend?: No Do you have trouble with day-to-day activities such as bathing, preparing meals, shopping, managing finances, etc.?: No Are you currently unemployed and looking for a job?: No Are you interested in more education?: No Please select the resources that you would like help with: None Currently or been in a relationship where the following occur: no concerns reported THRIVE Score: 0 AUDIT C Alcohol Use Questionnaire (AUDIT-C) 1. How often do you have a drink containing alcohol?: Never 3. How often do you have six or more drinks on one occasion?: Never Total Score: 0 GINI-7 AMB Questionnaire GINI-7 Date GINI - 7 assessed: 10/26/23 Feeling nervous, anxious, or on edge: 0 = Not at all Not being able to stop or control worryin = Not at all Worrying too much about different things: 0 = Not at all Trouble relaxin = Not at all Being so restless that it is hard to sit still: 0 = Not at all Becoming easily annoyed or irritable: 0 = Not at all Feeling afraid as if something awful might happen: 0 = Not at all Total GINI-7 score (0-4 normal; 5-9 mild; 10-14 moderate; 15-21 severe): 0 Source: Developed by Drs. Farhad Garber, Aliza Garcia, Darío Asif and colleagues, with an educational aracelis from [employer]. GINI-7 Assessment Billing GINI-7 Assessment Tool: GINI-7 Assessment 30456 Review of Systems Const Details: Denies chills, Denies fatigue, Denies fever(s), Denies headache(s) and Denies weakness HEENT Denies change in vision, Denies dizziness, Denies headache(s), Denies hearing loss, Denies nasal congestion, Denies sinus pain, Denies sinus pressure and Denies sore throat Card Denies chest pain, Denies lightheadedness, Denies dyspnea and Denies other (palpitations) Resp Denies cough, Denies dyspnea and Denies wheezing GI Denies abdominal pain, Denies melena, Denies hematochezia, Denies change in bowel habits, Denies dyspepsia and Denies nausea Denies hematuria and Denies dysuria Musc Denies abnormal gait, Denies myalgias, Denies arthralgias, Denies numbness and Denies tingling Skin/Breast Denies rash, Denies unusual bruising and Denies wounds Neuro Denies abnormal gait, Denies dizziness, Denies headache(s), Denies memory loss, Denies numbness, Denies Sensory deficit (Neuro), Denies tingling and Denies weakness Psych Denies anxiety, Denies depression and Denies memory loss Endo Denies cold intolerance, Denies fatigue, Denies heat intolerance, Denies polydipsia and Denies polyuria Alonzo/Lymph Denies easy bleeding and Denies easy bruising Aller/Immun Denies wheezing Physical exam (Primary Care) Vital Signs: Last Vital Signs Temp 97.8 F 10/26/23 10:34 Pulse 88 10/26/23 10:34 Resp 14 10/26/23 10:34 BP 130/68 10/26/23 10:34 Pulse Ox 99 10/26/23 10:34 Oxygen Delivery Method Room Air 10/26/23 10:34 BMI result Body Mass Index 28.6 Tobacco/Smoking Status: Tobacco use Status Tobacco use date assessed 10/26/23 10/26/23 10:40 Patient Tobacco Use Status Never used Tobacco 10/26/23 10:34 e-Cigarette/Vaping Use Never Used 10/26/23 10:34 PHQ-9: PHQ-9 Score PHQ-9: Total score 0 10/26/23 10:40 Depression Screening Interpretation: Negative Thrive Assessment: Date of Thrive Assessment Date Thrive assessed 10/26/23 10/26/23 10:40 Currently or been in a relationship where the following occur: no concerns reported Const Other: General: no acute distress, well developed, alert and awake Nutritional Appearance: well nourished Orientation/consciousness: patient oriented x3 HENMT Head: Yes normocephalic and Yes atraumatic Ears: hearing grossly normal bilaterally and TM's normal bilaterally General nose exam: Normal external nose present and Normal nares present Mouth: Normal oral and palatal mucosa present and moist mucous membranes Teeth and gingiva: dentition normal Throat: Yes oropharynx normal Eyes Pupils: Equal, round and reactive pupils present and Pupil accommodation reflex normal EOM: EOMs intact bilaterally Neck Neck: Yes normal visual inspection, Yes no lymphadenopathy and Yes trachea midline Thyroid: Thyroid normal Carotids: no bruits Lymphatic: no lymphadenopathy noted Chest Chest palpation & inspection: normal inspection of the chest Resp Effort & Inspection: normal respiratory effort Auscultation: clear to auscultation bilaterally Cardio Rate: regular rate Rhythm: regular rhythm Heart sounds: S1 normal heart sound present, S2 normal heart sound present, no gallops, no murmurs and no rubs Bruits: no abdominal aortic bruits and no carotid bruits GI Palpation (GI): No Abdominal aortic bruit present, Soft to palpation, nontender, No hepatosplenomegaly present and No Rebound tenderness present Auscultation: normal bowel sounds General: Yes no CVA tenderness Back/Spine/Pelvis Back: no CVA tenderness Cervical Spine: cervical ROM normal and No Cervical spine tenderness Thoracic/Lumbar Spine: thoraco-lumbar ROM normal, No pain with thoraco-lumbar ROM, No thoracic spinal tenderness and No lumbar spinal tenderness Skin General: warm and dry. Normal skin color. Normal skin turgor Lesions: no lesions Rashes: no rashes Trauma: no lacerations or abrasions Wounds: no wounds Nails: normal Neuro General: patient oriented x3, gait normal and CN's II-XI intact bilaterally Cranial nerves: Yes Equal, round and reactive pupils present Cognition (Neuro): normal cognition Gait exam (Neuro): Normal gait present Motor exam (neuro): 5/5 motor strength present throughout Sensory Exam: No Sensory deficit (Neuro) Deep tendon reflexes (DTR's): Right patellar reflex intensity grade: 2+ and Left patellar reflex intensity grade: 2+ Extrem General: Yes normal to inspection, No edema and No calf tenderness Psych Appearance: grossly normal Affect: normal affect Attitude: cooperative Thought process: Normal thought process present Assessment and Plan Assessment & Plan (1) Normal physical examination, routine: Code(s): Z00.00 - Encounter for general adult medical examination without abnormal findings Plan: No significant physical restrictions or limitations noted Continue current treatment regimen Healthy diet and routine exercise encouraged Advised to schedule an appointment with his dentist for routine dental care; get lab work done before his next visit; call and make an appointment with Ophthalmology for an eye exam Follow-up in 2 months for diabetes or return sooner with symptoms or concerns Verbalized understanding and agreed with the treatment plan (2) Colon cancer screening: Code(s): Z12.11 - Encounter for screening for malignant neoplasm of colon Plan: He has never had a colonoscopy Referred to [facility] gastroenterology for a colonoscopy (3) Vaccine counseling: Code(s): Z71.85 - Encounter for immunization safety counseling Plan: He has not been vaccinated for shingles Instructed on importance of vaccination and advised to get vaccinated for shingles. He may request a vaccines from his local pharmacy Verbalized understanding and agreed with the treatment plan Orders: Referrals Gastroenterology Referral Z12.11 - Encounter for screening for malignant neoplasm of colon Coding Level of Care Code Est Pt Prev Care 40-64y(97037) Diagnoses Normal physical examination, routine Z00.00 Colon cancer screening Z12.11 Vaccine counseling Z71.85 Additional Codes GINI-7 Assessment Billing - GINI-7 Assessment Tool: GINI-7 Assessment 54383 ([id number])
[2023-10-26 10:34] VITALS: BP 130/68; PULSE 88; RESP 14; TEMP 36.6; O2SAT 99; BMI 28.6
== END 2023-10-26 10:58 | disposition home or self-care (01) ==
PROVIDERS: PCP Nurse Practitioner Family; Visit Provider Nurse Practitioner Family
DX: Z00.00 Encounter for general adult medical examination without abnormal findings (principal); Z12.11 Encounter for screening for malignant neoplasm of colon; Z71.85 Encounter for immunization safety counseling
CPT/HCPCS: 99396

== ENCOUNTER 2023-11-08 10:44 | Outpatient (REF) | payer OTHER, SELFPAY ==
[2023-11-08 13:02] LABS: MANUAL DIFF FLAG NO
[2023-11-08 13:24] LABS: Alanine Aminotransferase 17 U/L (0-40); Albumin Level 4.3 g/dL (3.5-5.0); Alkaline Phosphatase 79 U/L (39-117); Anion Gap 11 (12-20); Aspartate Amino Transferase 18 U/L (5-37); Bilirubin Total 0.8 mg/dL (0.0-1.0); Blood Urea Nitrogen 7 mg/dL (9-16); Calcium 9.7 mg/dL (8.4-10.2); Carbon Dioxide 25 mmol/L (22-29); Chloride 104 mmol/L (96-108); Cholesterol 160 mg/dL (<200); Estimated Glomerular Filt Rate > 60; Glucose Fasting 148 mg/dL (60-99); HDL Cholesterol 34 mg/dL (>40); LDL Cholesterol Calculated 106 mg/dL (<100); Potassium 4.2 mmol/L (3.3-5.1); Sodium 136 mmol/L (135-145); Triglycerides 103 mg/dL (<150)
[2023-11-08 13:26] LABS: Basophils Percent Auto 0.4 % (0-2); Eosinophils Absolute Auto 0.1 X10*3/uL (0.0-0.4); Eosinophils Percent Auto 1.5 % (0-4); Hematocrit 49.5 % (42.0-52.0); Imm Gran Abs Auto 0.01 X10*3/uL (0.00-0.03); Imm Gran Pct Auto 0.2 % (0.0-0.4); Lymphocytes Percent Auto 21.4 % (20-40); Mean Corpuscular HGB Conc 34.3 g/dl (31.0-36.0); Mean Corpuscular Hemoglobin 29.7 pg (27.0-33.0); Mean Corpuscular Volume 86.4 fL (80.0-98.0); Mean Platelet Volume 11.2 fL (9.4-12.4); Monocytes Absolute Auto 0.4 X10*3/uL (0.1-1.2); Monocytes Percent Auto 8.1 % (2-11); Neutrophils Absolute Auto 3.1 x10*3/uL (2.0-8.3); Neutrophils Percent Auto 68.4 % (45-73); Platelet Count 200 X10*3/uL (160-400); Red Blood Count 5.73 X10*6/uL (4.60-5.80); Red Cell Distribution Width 12.6 % (11.0-16.0); White Blood Count 4.5 X10*3/uL (4.8-10.8)
[2023-11-08 13:40] LABS: TSH reflex Free T4 1.59 uIU/mL (0.32-4.0)
[2023-11-08 13:44] LABS: Appearance Urine Clear; Color Urine Yellow; Glucose Urine UA Negative (Negative); Leukocyte Esterase Urine Negative (Negative); Nitrite Urine Negative (Negative); PH 7.5 (5.0-9.0); Specific Gravity - Urine 1.015 (1.005-1.025); Urine Blood Negative (Negative); Urine Ketones Negative (Negative); Urine Protein Negative (Neg-Trace)
[2023-11-15 17:33] LABS: PSA, Ultra Sensitive 1.11 ng/mL
== END 2023-11-08 10:45 | disposition home or self-care (01) ==
LOC: HO.HMGCLDS 10:44
PROVIDERS: PCP Nurse Practitioner Family; Visit Provider Nurse Practitioner Family
DX: Z00.00 Encounter for general adult medical examination without abnormal findings (principal); Z12.5 Encounter for screening for malignant neoplasm of prostate; Z13.89 Encounter for screening for other disorder
CPT/HCPCS: 36415; 80053; 80061; 81003; 84153; 84443; 85025

== ENCOUNTER 2023-12-24 11:01 | Outpatient (AMB) | payer OTHER, SELFPAY ==
--- NOTE | 2023-12-24 11:05 | A.OFFPC_ITS ---
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: No Did you have a dental problem in the last 6 months where you did not have access to dental care?: No Was dental information given to patient?: Patient has dentist HPI HPI Comments History of Present Illness Details 48-year-old male presents for diabetes f ollow-up He admits to taking his medications as prescribed without adverse reactions He notes that he has been making healthy dietary choices. He generally sleeps well. He walks and runs routinely He notes that he has an appointment scheduled with Ophthalmology in 2 months He offers no complaints and denies acute symptoms at this time [facility] Medical History No pertinent past medical history Surgical History No pertinent past surgical history Social History Housing: Apartment Patient Tobacco Use Status: Never used Tobacco e-Cigarette/Vaping Use: Never Used Second Hand Smoke Exposure: No service: No Current occupational status: employed Current occupation: [employer] Current occupational exposures/hazards: No Cognitive needs: No Hearing needs: No Vision needs: No Questionnaire PHQ-9 Over the last 2 weeks, how often have you been bothered by any of the following problems? 1. Little interest or pleasure in doing things: not at all 2. Feeling down, depressed, or hopeless: not at all 3. Trouble falling or staying asleep, or sleeping too much: not at all 4. Feeling tired or having little energy: several days 5. Poor appetite or overeating: several days 6. Feeling bad about yourself - or that you are a failure or have let yourself or your family down: not at all 7. Trouble concentrating on things, such as reading the newspaper or watching television: not at all 8. Moving or speaking so slowly that other people could have noticed. Or the opposite - being so fidgety or restless that you have been moving around a lot more than usual: not at all 9. Thoughts that you would be better off or of hurting yourself in some way: not at all Total score: 2 24230 - PHQ-9 Billing: Yes Source: Developed by Drs. Farhad Garber, Aliza Garcia, Darío Asif and colleagues, with an educational aracelis from [employer] Thrive Questionnaire Date Thrive assessed: 10/26/23 GINI-7 AMB Questionnaire GINI-7 Date GINI - 7 assessed: 10/26/23 Source: Developed by Drs. Farhad Garber, Darío Aguilera and colleagues, with an educational aracelis from [employer] Review of Systems Const Details: Const Denies chills, Denies fatigue, Denies fever(s), Denies headache(s) and Denies weakness ENT Denies dizziness and Denies headache(s) Card Denies chest pain, Denies lightheadedness, Denies dyspnea and Denies other (Palpitations) Resp Denies cough, Denies dyspnea, Denies wheezing and Denies other ( shortness of breath) GI Denies abdominal pain, Denies melena, Denies hematochezia, Denies change in bowel habits, Denies dyspepsia and Denies nausea Denies hematuria and Denies dysuria Musc Denies abnormal gait, Denies myalgias, Denies arthralgias, Denies numbness and Denies tingling Skin/Breast Denies rash, Denies unusual bruising and Denies wounds Neuro Denies abnormal gait, Denies dizziness, Denies headache(s), Denies memory loss, Denies numbness, Denies Sensory deficit (Neuro), Denies tingling and Denies weakness Psych Denies anxiety, Denies depression, Denies memory loss Endo Denies cold intolerance, Denies fatigue, Denies heat intolerance, Denies polydipsia and Denies polyuria Aller/Immun Denies wheezing Physical exam (Primary Care) Vital Signs: Last Vital Signs Temp 97.6 F 12/24/23 11:11 Pulse 78 12/24/23 11:11 Resp 16 12/24/23 11:11 BP 122/60 12/24/23 11:25 Pulse Ox 98 12/24/23 11:11 Oxygen Delivery Method Room Air 12/24/23 11:11 BMI result Body Mass Index 28.4 Tobacco/Smoking Status: Tobacco use Status Tobacco use date assessed 12/24/23 12/24/23 11:15 Patient Tobacco Use Status Never used Tobacco 12/24/23 11:06 e-Cigarette/Vaping Use Never Used 12/24/23 11:06 PHQ-9: PHQ-9 Score PHQ-9: Total score 2 12/24/23 11:20 Thrive Assessment: Date of Thrive Assessment Date Thrive assessed 10/26/23 12/24/23 11:06 Const Other: General: no acute distress and well developed Nutritional Appearance: well nourished Orientation/consciousness: patient oriented x3 HENMT Head: Yes normocephalic and Yes atraumatic Eyes General: appearance normal, both eyes and all related structures Pupils: Equal, round and reactive pupils present EOM: EOMs intact bilaterally Resp Effort & Inspection: normal respiratory effort Auscultation: clear to auscultation bilaterally Cardio Rate: regular rate Rhythm: regular rhythm Heart sounds: S1 normal heart sound present, S2 normal heart sound present, no gallops, no murmurs and no rubs GI Palpation (GI): No Abdominal aortic bruit present, Soft to palpation, nontender, No hepatosplenomegaly present and No Rebound tenderness present Auscultation: normal bowel sounds General: Yes no CVA tenderness Back/Spine/Pelvis Back: no CVA tenderness Cervical Spine: cervical ROM normal and No Cervical spine tenderness Thoracic/Lumbar Spine: thoraco-lumbar ROM normal, No pain with thoraco-lumbar ROM, No thoracic spinal tenderness and No lumbar spinal tenderness Extrem General: Yes normal to inspection, No edema and No calf tenderness Skin General: warm and dry. Normal skin color. Normal skin turgor Neuro General: patient oriented x3, gait normal and no focal neuro deficit Cranial nerves: Yes Equal, round and reactive pupils present Cognition (Neuro): normal cognition Gait exam (Neuro): Normal gait present Sensory Exam: No Sensory deficit (Neuro) Psych Appearance: grossly normal Affect: normal affect Attitude: cooperative Thought process: Normal thought process present Results AMB Hemoglobin A1c AMB Hemoglobin A1c 6.5 % Last Edit by Rosalva Billingsley on 12/24/23 13:47 Results Reviewed Results Reviewed: Laboratory Last Values Hgb A1c (Clinic) 6.5 % (4.0-6.0) H 12/24/23 11:29 Assessment and Plan Assessment & Plan (1) Diabetes mellitus: Code(s): E11.9 - Type 2 diabetes mellitus without complications Plan: A1c today 6.5%, within goal of less than 7.0%. Previous A1c was 6.6% Continue current treatment regimen ADA diet and routine exercise encouraged Follow-up with Ophthalmology as planned Return in 3 months or sooner with symptoms or concerns Verbalized understanding and agreed with the treatment plan Orders: Orders AMB Hemoglobin A1c Today Z13.9 - Encounter for screening, unspecified Coding Level of Care Code Est Pt Level 3 (72132) Diagnoses Diabetes mellitus E11.9
[2023-12-24 11:11] VITALS: BP 138/64; PULSE 78; RESP 16; TEMP 36.4; O2SAT 98; BMI 28.4
[2023-12-24 11:25] VITALS: BP 122/60
== END 2023-12-24 11:31 | disposition home or self-care (01) ==
PROVIDERS: PCP Nurse Practitioner Family; Visit Provider Nurse Practitioner Family
DX: Z13.9 Encounter for screening, unspecified (principal); E11.9 Type 2 diabetes mellitus without complications
CPT/HCPCS: 83036; 99213

== ENCOUNTER 2024-02-25 11:16 | Outpatient (AMB) | payer OTHER, SELFPAY ==
[2024-02-25 11:30] VITALS: BP 136/72; PULSE 76; O2SAT 98; BMI 28.5
--- NOTE | 2024-02-25 11:30 | MHC.OFFVIS ---
Vital Signs 02/25/24 11:30 Height 5 ft 10 in Weight 198 lb 6.656 oz BMI 28.5 BP 136/72 Blood Pressure Location Rt brachial Position Sitting Pulse 76 Pulse Source Pulse Oximeter Pulse Oximetry (%) 98 Oxygen Delivery Method Room Air Intake Visit Reasons: Colonoscopy Screening Intake Note: Sd presents in office today for a scheduled colo consult CC: Pt denies any GI sx or concerns at this time. Pt does report some occasional difficulties with some of his medications and having sx but typically is OK. Pt denies any pertinent family hx. Pt denies any previous hx of colo. This will be an initial procedure with routine priority. Manager Studio Required: No Allergies No Known Allergies Allergy (Verified 02/25/24 11:31) HPI HPI Colonoscopy Screening: Details: 48 year old? male with past medical history of diabetes is here today for pre colonoscopy screening.? Patient was sent to us by his PCP.? This is his first colonoscopy screening.? Patient denies any gastrointestinal symptoms in the past or at present.? Denies any personal or family history of gastrointestinal disease, colon polyps, or CRC.? Patient reports that he never had anesthesia in the past..? Negative for history of sleep apnea.? Denies any history of cardiac, renal, pulmonary, or hepatic disease.?? No history of infectious? diseases like hepatitis A, B, C, HIV or tuberculosis.? Patient is not on any anticoagulation [facility] Medical History No pertinent past medical history Surgical History No pertinent past surgical history Social History Housing: Apartment Patient Tobacco Use Status: Never used Tobacco e-Cigarette/Vaping Use: Never Used Second Hand Smoke Exposure: No service: No Current occupational status: employed Current occupation: [employer] Current occupational exposures/hazards: No Cognitive needs: No Hearing needs: No Vision needs: No Review of Systems Const Denies weight gain and Denies weight loss ENT Reports no additional complaints, Denies dysphagia and Denies odynophagia Card Reports no additional complaints Resp Reports no additional complaints GI Denies abdominal pain, Denies belching, Denies melena, Denies bloating, Denies change in bowel habits, Denies dysphagia, Denies excessive flatus, Denies dyspepsia, Denies heartburn, Denies diarrhea, Denies loose stools, Denies nausea, Denies odynophagia and Denies vomiting Reports no additional complaints Musc Reports no additional complaints Neuro Reports no additional complaints Psych Reports no additional complaints Endo Reports no additional complaints Physical Exam Vital Signs: Last Vital Signs Pulse 76 02/25/24 11:30 BP 136/72 02/25/24 11:30 Pulse Ox 98 02/25/24 11:30 Oxygen Delivery Method Room Air 02/25/24 11:30 BMI result Body Mass Index 28.5 Const General: healthy appearing, no acute distress and well developed Nutritional Appearance: well nourished Orientation/consciousness: patient oriented x3 Resp Effort & Inspection: normal respiratory effort, able to speak in complete sentences, no tracheal deviation and symmetric chest movement Auscultation: clear to auscultation bilaterally Cardio Rate: regular rate GI Inspection: Yes normal to inspection and No distended Palpation (GI): Soft to palpation, not firm, nontender and No hepatosplenomegaly present Auscultation: normal bowel sounds General: Yes no CVA tenderness Back/Spine/Pelvis Back: no CVA tenderness Skin General skin exam: elasticity normal, turgor normal and dry skin Neuro General: patient oriented x3 Psych Appearance: grossly normal Mental Status: mental status grossly normal Assessment & Plan Assessment & Plan (1) Colon cancer screening: Code(s): Z12.11 - Encounter for screening for malignant neoplasm of colon Category: Medical Plan Patient denies any GI, cardiac or respiratory symptoms.?.? Denies any history of sleep apnea.? No history infectious diseases in the past or present.? Not on any anticoagulation therapy.? No family or personal history of colon cancer or polyps.? Patient denies melena, hematochezia, unintentional weight loss or ribbon like stools.? Discussed at length the pre-procedure,? prep, diet & medications as well as what to expect prior, during and after the procedure.?? Stressed the importance of good bowel prep.? Recommended the use of Vaseline or Calmoseptine OTC & baby wipes with bowel movements to promote comfort.? ?Patient verbalizes understanding and agrees to plan of care.? He was given the opportunity to ask questions and all questions answered.? We will see him after the procedure.? Medications: New polyethylene glycol 3350 (Miralax) As directed by gastroenterology department at [facility] 238 grams PO ONCE 238 grams 0RF Z12.11 - Encounter for screening for malignant neoplasm of colon bisacodyl (Dulcolax (bisacodyl)) take 4 tabs at noon the day before your colonoscopy 20 mg (4 x 5 mg) PO ONCE 1 day 4 tabs 0RF Z12.11 - Encounter for screening for malignant neoplasm of colon Coding Level of Care Code New Pt Level 3 (39848) Diagnoses Colon cancer screening Z12.11 Time Spent (min) 40 Comment 30 minutes spent with patient and additional 10 minutes spent reviewing his records
== END 2024-02-25 12:12 | disposition home or self-care (01) ==
PROVIDERS: PCP Nurse Practitioner Family; Visit Provider Nurse Practitioner Family
DX: Z01.818 Encounter for other preprocedural examination (principal); Z12.11 Encounter for screening for malignant neoplasm of colon
CPT/HCPCS: S0285

== ENCOUNTER → 2024-02-25 11:16 | Outpatient (BNVA) | payer OTHER, SELFPAY | PROVIDERS: PCP Nurse Practitioner Family; Visit Provider Nurse Practitioner Family ==

== ENCOUNTER 2024-03-14 08:36 | Outpatient (AMB) | payer OTHER, SELFPAY ==
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
[2024-03-14 09:15] VITALS: BP 140/80; PULSE 77; O2SAT 99; BMI 28.4
== END 2024-03-14 09:46 | disposition home or self-care (01) ==
PROVIDERS: PCP Nurse Practitioner Family; Visit Provider Physician Assistant
DX: H11.001 Unspecified pterygium of right eye (principal); H21.01 Hyphema, right eye

== ENCOUNTER → 2024-03-14 08:36 | Outpatient (BNVA) | payer OTHER, SELFPAY | PROVIDERS: PCP Nurse Practitioner Family; Visit Provider Physician Assistant ==

== ENCOUNTER 2024-03-31 10:56 | Outpatient (AMB) | payer OTHER, SELFPAY ==
--- NOTE | 2024-03-31 11:51 | MHC.PC.OV ---
Vital Signs 03/31/24 12:00 Height 5 ft 10 in Weight 199 lb BMI 28.6 BP 122/72 Blood Pressure Location Lt brachial Position Sitting Respiration 16 Pulse 70 Pulse Source Pulse Oximeter Temp 97.6 F Temp Source Oral Pulse Oximetry (%) 99 Oxygen Delivery Method Room Air Intake Visit Reasons: 3 mos DM Intake Note: patient here for 3 month follow up on DM Staging Technician Required: No Allergies No Known Allergies Allergy (Verified 03/31/24 11:56) Tobacco use date assessed: 03/31/24 Dental Screening Dental Screen Date: 03/31/24 Did you have a dental visit in the last 12 months?: Yes Did you have a dental problem in the last 6 months where you did not have access to dental care?: No Was dental information given to patient?: Patient has dentist HPI HPI Comments History of Present Illness Details 48-year-old male presents for diabetes follow-up He admits to taking his medications as prescribed without adverse reactions He admits to making healthy lifestyle changes He notes that his 1st diabetic eye exam with [facility] is scheduled for 09/2024 He offers no complaints and denies acute symptoms at this time [facility] Medical History No pertinent past medical history Surgical History No pertinent past surgical history Social History Housing: Apartment Patient Tobacco Use Status: Never used Tobacco e-Cigarette/Vaping Use: Never Used Second Hand Smoke Exposure: No service: No Current occupational status: employed Current occupation: [employer] Current occupational exposures/hazards: No Cognitive needs: No Hearing needs: No Vision needs: No Questionnaire Thrive Questionnaire Date Thrive assessed: 10/26/23 AUDIT C Alcohol Use Questionnaire (AUDIT-C) 1. How often do you have a drink containing alcohol?: Never Total Score: 0 GINI-7 AMB Questionnaire GINI-7 Date GINI - 7 assessed: 10/26/23 Source: Developed by Drs. Farhad Garber, Aliza Garcia, Darío Asif and colleagues, with an educational aracelis from [employer]. Review of Systems Const Details: Const Denies chills, Denies fatigue, Denies fever(s), Denies headache(s) and Denies weakness ENT Denies dizziness and Denies headache(s) Card Denies chest pain, Denies lightheadedness, Denies dyspnea and Denies other (Palpitations) Resp Denies cough, Denies dyspnea, Denies wheezing and Denies other ( shortness of breath) GI Denies abdominal pain, Denies melena, Denies hematochezia, Denies change in bowel habits, Denies dyspepsia and Denies nausea Denies hematuria and Denies dysuria Musc Denies abnormal gait, Denies myalgias, Denies arthralgias, Denies numbness and Denies tingling Skin/Breast Denies rash, Denies unusual bruising and Denies wounds Neuro Denies abnormal gait, Denies dizziness, Denies headache(s), Denies memory loss, Denies numbness, Denies Sensory deficit (Neuro), Denies tingling and Denies weakness Psych Denies anxiety, Denies depression, Denies memory loss Endo Denies cold intolerance, Denies fatigue, Denies heat intolerance, Denies polydipsia and Denies polyuria Aller/Immun Denies wheezing Physical exam (Primary Care) Vital Signs: Last Vital Signs Temp 97.6 F 03/31/24 12:00 Pulse 70 03/31/24 12:00 Resp 16 03/31/24 12:00 BP 122/72 03/31/24 12:00 Pulse Ox 99 03/31/24 12:00 Oxygen Delivery Method Room Air 03/31/24 12:00 BMI result Body Mass Index 28.6 Tobacco/Smoking Status: Tobacco use Status Tobacco use date assessed 03/31/24 03/31/24 12:02 Patient Tobacco Use Status Never used Tobacco 03/31/24 11:53 e-Cigarette/Vaping Use Never Used 03/31/24 11:53 Thrive Assessment: Date of Thrive Assessment Date Thrive assessed 10/26/23 03/31/24 11:53 Const Other: General: no acute distress and well developed Nutritional Appearance: well nourished Orientation/consciousness: patient oriented x3 HENMT Head: Yes normocephalic and Yes atraumatic Eyes General: appearance normal, both eyes and all related structures Pupils: Equal, round and reactive pupils present EOM: EOMs intact bilaterally Resp Effort & Inspection: normal respiratory effort Auscultation: clear to auscultation bilaterally Cardio Rate: regular rate Rhythm: regular rhythm Heart sounds: S1 normal heart sound present, S2 normal heart sound present, no gallops, no murmurs and no rubs GI Palpation (GI): No Abdominal aortic bruit present, Soft to palpation, nontender, No hepatosplenomegaly present and No Rebound tenderness present Auscultation: normal bowel sounds General: Yes no CVA tenderness Back/Spine/Pelvis Back: no CVA tenderness Extrem General: Yes normal to inspection, No edema and No calf tenderness Skin General: warm and dry. Normal skin color. Normal skin turgor Neuro General: patient oriented x3, gait normal and no focal neuro deficit Cranial nerves: Yes Equal, round and reactive pupils present Cognition (Neuro): normal cognition Gait exam (Neuro): Normal gait present Sensory Exam: No Sensory deficit (Neuro) Psych Appearance: grossly normal Affect: normal affect Attitude: cooperative Thought process: Normal thought process present Coding Level of Care Code Est Pt Level 3 (99458) Diagnoses Diabetes mellitus E11.9 Assessment & Plan Assessment & Plan (1) Diabetes mellitus: Code(s): E11.9 - Type 2 diabetes mellitus without complications Category: Medical Plan: Recent A1c is 6.3%, within goal of less than 7.0%. Previous A1c was 6.5% Continue current treatment regimen ADA diet and routine exercise encouraged Follow-up in 3 months or sooner with symptoms or concerns Verbalized understanding and agreed with treatment plan Orders: Orders AMB Hemoglobin A1c Today Z13.9 - Encounter for screening, unspecified Medications: Refilled glipizide 10 mg PO DAILY 90 days 90 tabs 1RF
[2024-03-31 12:00] VITALS: BP 122/72; PULSE 70; RESP 16; TEMP 36.4; O2SAT 99; BMI 28.6
== END 2024-03-31 12:27 | disposition home or self-care (01) ==
LOC: HO.HMCFM 10:56
PROVIDERS: PCP Nurse Practitioner Family; Visit Provider Nurse Practitioner Family
DX: E11.9 Type 2 diabetes mellitus without complications (principal); Z13.9 Encounter for screening, unspecified

== ENCOUNTER → 2024-03-31 10:56 | Outpatient (BNVA) | payer OTHER, SELFPAY | PROVIDERS: PCP Nurse Practitioner Family; Visit Provider Nurse Practitioner Family | DX: E11.9 Type 2 diabetes mellitus without complications (principal) | CPT/HCPCS: 83036 ==

== ENCOUNTER 2024-06-19 09:28 | Day surgery (SDC) | payer OTHER, SELFPAY ==
--- NOTE | 2024-06-17 14:16 | HO.ANESPROP2 ---
Documented by User: Hue Bonner NP 06/17/24 14:16 HPI - Anesthesia Eval Consult details Narrative: 48yo M for Colonoscopy PMFSH Active Problems Active Problems: All Active Problems Shoulder pain, left (Acute) Hyphema, right eye (Acute) Pterygium eye (Acute) Subconjunctival hemorrhage of right eye (Acute) Vaccine counseling (Acute) Colon cancer screening (Acute) Normal physical examination, routine (Acute) Laboratory tests ordered as part of a complete physical exam (CPE) (Acute) Neck pain on left side (Acute) Diabetes mellitus (Acute) Abdominal pain (Acute) Past Medical History Medical History GERD (gastroesophageal reflux disease) Diabetes mellitus Surgical History Surgical History No pertinent past surgical history Social History Social History Housing: Apartment Patient Tobacco Use Status: Never used Tobacco e-Cigarette/Vaping Use: Never Used Second Hand Smoke Exposure: No Are you DNR?: No Advance Directives: No Advance Directives Information Provided: Yes service: No Current occupational status: employed Current occupation: [employer] Current occupational exposures/hazards: No Cognitive needs: No Hearing needs: No Vision needs: No Meds Allergies Allergy/AdvReac Type Severity Reaction Status Date / Time No Known Allergies Allergy Verified 03/31/24 11:56 Home Medications ?Medication ?Instructions ?Recorded ?Confirmed ?Last Taken ?Type glipizide 10 mg tablet 10 mg PO DAILY 06/18/24 06/19/24 06/17/24 History Assessment and Plan Assessment Anesthesia Assessment: Chart Reviewed Documented by User: Rosa Nevarez MD 06/19/24 10:03 PMFSH Active Problems Active Problems: All Active Problems Shoulder pain, left (Acute) Hyphema, right eye (Acute) Pterygium eye (Acute) Subconjunctival hemorrhage of right eye (Acute) Vaccine counseling (Acute) Colon cancer screening (Acute) Normal physical examination, routine (Acute) Laboratory tests ordered as part of a complete physical exam (CPE) (Acute) Neck pain on left side (Acute) Diabetes mellitus (Acute) Abdominal pain (Acute) GERD Past Medical History Medical History GERD (gastroesophageal reflux disease) Diabetes mellitus Family History Family history of problems with anesthesia: No Surgical History Surgical History No pertinent past surgical history History of Problems with Anesthesia: No Social History Social History Housing: Apartment Patient Tobacco Use Status: Never used Tobacco e-Cigarette/Vaping Use: Never Used Second Hand Smoke Exposure: No Are you DNR?: No Advance Directives: No Advance Directives Information Provided: Yes service: No Current occupational status: employed Current occupation: [employer] Current occupational exposures/hazards: No Cognitive needs: No Hearing needs: No Vision needs: No Meds Allergies Allergy/AdvReac Type Severity Reaction Status Date / Time No Known Allergies Allergy Verified 03/31/24 11:56 Home Medications ?Medication ?Instructions ?Recorded ?Confirmed ?Last Taken ?Type glipizide 10 mg tablet 10 mg PO DAILY 06/18/24 06/19/24 06/17/24 History Exam Height,Weight and Vital Signs: Height 5 ft 10 in Weight 89.811 kg Vital Signs Temp Pulse Resp BP Pulse Ox O2 Del Method 06/19/24 09:39 97 F 89 18 123/70 98 Room Air Pertinent Lab Results Pertinent Lab Results: Lab Results 06/19/24 Range/Units 09:38 POC Glucose 147 H (60-115) mg/dL Airway Mallampati Class: II TM Dist: >3cm Neck ROM: Full Loose/Missing/Broken Teeth: Yes (Some extractions. Denies broken or loose teeth) Heart: RRR Lungs: CTAB Assessment and Plan Assessment Anesthesia Assessment: Anesthesia Plan Discussed and Chart Reviewed Final Anesthetic Review Family History of Problems with Anesthesia: No History of Problems with Anesthesia: No NPO: Yes ASA Class: II Final Preanesthetic Review: No Changes in Pt Med Stat, Meds/Allgs Chart Reviewed, Consent Obtained/Reviewed and Anes Risks/Benef Reviewed Patient Risk: Intermediate Procedure Risk: Low Assessment/Block/Sedation in SS: Assess/Block/Sedation-SS Anesthetic Plan Anesthetic Plan: TIVA Disposition: Standard PACU
[2024-06-18 05:55] VITALS: BMI 28.4
--- NOTE | 2024-06-19 09:29 | MHC.SHP ---
Pre-Procedural Eval Section A - 24 Hr Update-Section A only Date of Service: 06/19/24 Section B - Complete if H&P > 30 days Chief Complaint: screening Present Medications: see Short Stay Collaborative assessment Medical History: No relevant PMH History of Previous Operations: No relevant previous surgery Allergies: Allergies Allergy/AdvReac Type Severity Reaction Status Date / Time No Known Allergies Allergy Verified 03/31/24 11:56 Review of Systems Review of Systems Comment: Ten point ROS negative Exam Exam Comment: Gen appear: No acute distress HEENT: no icterus Chest: No overt resp distress Abd: soft, nontender, nondistended Psych: Stable affect, answering questions appropriately Neuro: A/Ox3 noted to move all extremities spontaneously Ext: no peripheral edema Plan Diagnosis/Plan: Unchanged I have reviewed the history and physical and performed a pertinent physical examination on my patient. No changes have occurred unless specified. Time Spent With Patient Time: Total time managing care of this patient today ____ minutes.
[2024-06-19 09:39] VITALS: BP 123/70; PULSE 89; RESP 18; TEMP 36.1; O2SAT 98
[2024-06-19 09:42] LABS: Glucose, Whole Blood 147 mg/dL (60-115)
[2024-06-19] MEDS: Lactated Ringers 1,000 ML 100 ML IVCONT (09:53)
--- NOTE | 2024-06-19 11:02 | P.OPN-COLO_ITS ---
Colonoscopy Operative Note Operative Note Date of Service: 06/19/24 Narrative: Procedure: Colonoscopy Indication: Screening Endoscopist: Abigail Park MD Anesthesia Provider: Nayely Leon CRNA Anesthesia type: MAC Instrument: Olympus [id number]-[id number] Consent: Indication, risks vs benefits, and alternatives were discussed with the patient who gave written informed consent to proceed. EKG, pulse, pulse oximetry and blood pressure were monitored throughout the procedure. Please see anesthesia flowsheet. Procedure: The patient was brought to the procedure room and placed in the left lateral decubitus position. IV medications were administered by the anesthesia provider in attendance. A digital rectal exam was performed which was normal. A distal attachment cap was affixed to the tip of the colonoscope which was then inserted through the anus and advanced through the colon to the cecum at 75 cm,and terminal ileum. Appendiceal orifice and ileocecal valve were identified. Mucosa was carefully examined under high definition white light as the instrument was slowly withdrawn in a retrograde panoramic fashion. Retroflexion was performed in rectum. The procedure was not difficult. There were no immediate obvious complications. The quality of the prep was BBPS: 3+2+3 = adequate Withdrawal time 9 minutes. Limitations: No limitations. Findings: Mucosa: Normal to cecum and terminal ileum. Protruding lesions: * Medium internal hemorrhoids without stigmata of recent bleeding. Impression: 1. Normal colon mucosa 2. Internal hemorrhoids Recommendations: - Repeat colonoscopy in 10 years for asymptomatic colorectal cancer screening
[2024-06-19 11:07] VITALS: BP 80/47; PULSE 73; RESP 16; TEMP 36.6; O2SAT 98
[2024-06-19 11:17] VITALS: BP 89/49
[2024-06-19 11:21] VITALS: BP 92/53
[2024-06-19 11:36] VITALS: BP 108/69; PULSE 65; RESP 13; O2SAT 100
[2024-06-19 11:51] VITALS: BP 113/73; PULSE 71; RESP 18; TEMP 36.6; O2SAT 100
== END 2024-06-19 12:47 | disposition home or self-care (01) ==
PROVIDERS: PCP Nurse Practitioner Family; Visit Provider Internal Medicine
PROC: 0DJD8ZZ Inspection of Lower Intestinal Tract, Via Natural or Artificial Opening Endoscopic (ICD-10-PCS; CPT 45378; principal; 2024-06-19 11:20)
DX: Z12.11 Encounter for screening for malignant neoplasm of colon (principal); K64.8 Other hemorrhoids; E11.9 Type 2 diabetes mellitus without complications; K21.9 Gastro-esophageal reflux disease without esophagitis; Z79.84 Long term (current) use of oral hypoglycemic drugs; Z79.899 Other long term (current) drug therapy
CPT/HCPCS: 45378; 82947; J2003; J2704

== ENCOUNTER → 2024-06-19 09:28 | Outpatient (BNV) | payer OTHER, SELFPAY | PROVIDERS: PCP Nurse Practitioner Family; Visit Provider Internal Medicine | DX: Z12.11 Encounter for screening for malignant neoplasm of colon (principal); K64.8 Other hemorrhoids | CPT/HCPCS: 45378 ==

== ENCOUNTER 2024-07-07 10:28 | Outpatient (AMB) | payer OTHER, SELFPAY ==
--- NOTE | 2024-07-07 10:34 | MHC.PC.OV ---
Vital Signs 07/07/24 10:42 Height 5 ft 11 in Weight 203 lb BMI 28.3 BP 122/64 Blood Pressure Location Rt brachial Position Sitting Respiration 16 Pulse 67 Pulse Source Pulse Oximeter Temp 98.2 F Temp Source Oral Pulse Oximetry (%) 99 Oxygen Delivery Method Room Air Intake Visit Reasons: 3 mos DM Intake Note: patient here for 3 month follow up on DM [employer] Required: No Allergies No Known Allergies Allergy (Verified 07/07/24 10:45) Medication List - Last Reconciled 07/07/24 by Jose Luis Antony CNP glipizide 10 mg PO DAILY metformin 1,000 mg PO BIDWMEAL 30 days omeprazole 20 mg PO DAILY 90 days Tobacco use date assessed: 07/07/24 Dental Screening Dental Screen Date: 07/07/24 Did you have a dental visit in the last 12 months?: Yes Did you have a dental problem in the last 6 months where you did not have access to dental care?: No Was dental information given to patient?: Patient has dentist HPI HPI Comments History of Present Illness Details 48-year-old male presents for diabetes follow-up. He admits to taking his medications as prescribed without adverse reactions. He admits to making healthy lifestyle changes. He offers no complaints and denies acute symptoms at this time. He has his 1st diabetic eye exam scheduled with [facility] in 09/2024. [facility], [facility] Medical History (Updated 07/07/24 @ 10:43 by Jose Luis Antony CNP) Diabetes mellitus GERD (gastroesophageal reflux disease) Surgical History No pertinent past surgical history Social History Housing: Apartment Patient Tobacco Use Status: Never used Tobacco e-Cigarette/Vaping Use: Never Used Second Hand Smoke Exposure: No service: No Current occupational status: employed Current occupation: [employer] Current occupational exposures/hazards: No Cognitive needs: No Hearing needs: No Vision needs: No Questionnaire PHQ-9 Over the last 2 weeks, how often have you been bothered by any of the following problems? 1. Little interest or pleasure in doing things: not at all 2. Feeling down, depressed, or hopeless: not at all 3. Trouble falling or staying asleep, or sleeping too much: not at all 4. Feeling tired or having little energy: not at all 5. Poor appetite or overeating: not at all 6. Feeling bad about yourself - or that you are a failure or have let yourself or your family down: not at all 7. Trouble concentrating on things, such as reading the newspaper or watching television: not at all 8. Moving or speaking so slowly that other people could have noticed. Or the opposite - being so fidgety or restless that you have been moving around a lot more than usual: not at all 9. Thoughts that you would be better off or of hurting yourself in some way: not at all Total score: 0 Depression Screening Interpretation: Negative Depression Screening Done: Yes 14866 - PHQ-9 Billing: Yes Source: Developed by Drs. Farhad Garber, Ailza Garcia, Darío Asif and colleagues, with an educational aracelis from [employer]. Thrive Questionnaire Date Thrive assessed: 07/07/24 I am a: Patient What is your living situation today?: I choose not to answer this question Within the past 12 months, did the food you bought not last and you didn't have the money to get more?: Never true Within the past 12 months, did you worry whether your food would run out before you got money to buy more?: Never true Do you have trouble paying for medicines?: No Do you have trouble getting transportation to medical appointments?: No Do you have trouble paying your heating and electricity bill?: No Do you have trouble taking care of your child, family member or friend?: No Do you have trouble with day-to-day activities such as bathing, preparing meals, shopping, managing finances, etc.?: No Are you currently unemployed and looking for a job?: No Are you interested in more education?: I choose not to answer this question Please select the resources that you would like help with: None Currently or been in a relationship where the following occur: No concerns reported THRIVE Score: 0 AUDIT C Alcohol Use Questionnaire (AUDIT-C) 1. How often do you have a drink containing alcohol?: Never Total Score: 0 GINI-7 AMB Questionnaire GINI-7 Date GINI - 7 assessed: 07/07/24 Feeling nervous, anxious, or on edge: 0 = Not at all Not being able to stop or control worryin = Not at all Worrying too much about different things: 0 = Not at all Trouble relaxin = Not at all Being so restless that it is hard to sit still: 0 = Not at all Becoming easily annoyed or irritable: 0 = Not at all Feeling afraid as if something awful might happen: 0 = Not at all Total GINI-7 score (0-4 normal; 5-9 mild; 10-14 moderate; 15-21 severe): 0 Source: Developed by Drs. Farhad Garber, Aliza Garcia, Darío Asif and colleagues, with an educational aracelis from [employer]. Review of Systems Const Details: Const Denies chills, Denies fatigue, Denies fever(s), Denies headache(s) and Denies weakness ENT Denies dizziness and Denies headache(s) Card Denies chest pain, Denies lightheadedness, Denies dyspnea and Denies other (Palpitations) Resp Denies cough, Denies dyspnea, Denies wheezing and Denies other ( shortness of breath) GI Denies abdominal pain, Denies melena, Denies hematochezia, Denies change in bowel habits, Denies dyspepsia and Denies nausea Denies hematuria and Denies dysuria Musc Denies abnormal gait, Denies myalgias, Denies arthralgias, Denies numbness and Denies tingling Skin/Breast Denies rash, Denies unusual bruising and Denies wounds Neuro Denies abnormal gait, Denies dizziness, Denies headache(s), Denies memory loss, Denies numbness, Denies Sensory deficit (Neuro), Denies tingling and Denies weakness Psych Denies anxiety, Denies depression, Denies memory loss Endo Denies cold intolerance, Denies fatigue, Denies heat intolerance, Denies polydipsia and Denies polyuria Aller/Immun Denies wheezing Physical exam (Primary Care) Vital Signs: Last Vital Signs Temp 98.2 F 07/07/24 10:42 Pulse 67 07/07/24 10:42 Resp 16 07/07/24 10:42 BP 122/64 07/07/24 10:42 Pulse Ox 99 07/07/24 10:42 Oxygen Delivery Method Room Air 07/07/24 10:42 BMI result Body Mass Index 28.3 Tobacco/Smoking Status: Tobacco use Status Tobacco use date assessed 07/07/24 07/07/24 10:44 Patient Tobacco Use Status Never used Tobacco 07/07/24 10:36 e-Cigarette/Vaping Use Never Used 07/07/24 10:36 PHQ-9: PHQ-9 Score PHQ-9: Total score 0 07/07/24 10:44 Depression Screening Interpretation: Negative Thrive Assessment: Date of Thrive Assessment Date Thrive assessed 07/07/24 07/07/24 10:44 Currently or been in a relationship where the following occur: No concerns reported Const Other: General: no acute distress and well developed Nutritional Appearance: well nourished Orientation/consciousness: patient oriented x3 HENMT Head: Yes normocephalic and Yes atraumatic Eyes General: appearance normal, both eyes and all related structures Pupils: Equal, round and reactive pupils present EOM: EOMs intact bilaterally Resp Effort & Inspection: normal respiratory effort Auscultation: clear to auscultation bilaterally Cardio Rate: regular rate Rhythm: regular rhythm Heart sounds: S1 normal heart sound present, S2 normal heart sound present, no gallops, no murmurs and no rubs GI Palpation (GI): No Abdominal aortic bruit present, Soft to palpation, nontender, No hepatosplenomegaly present and No Rebound tenderness present Auscultation: normal bowel sounds General: Yes no CVA tenderness Back/Spine/Pelvis Back: no CVA tenderness Cervical Spine: cervical ROM normal and No Cervical spine tenderness Thoracic/Lumbar Spine: thoraco-lumbar ROM normal, No pain with thoraco-lumbar ROM, No thoracic spinal tenderness and No lumbar spinal tenderness Extrem General: Yes normal to inspection, No edema and No calf tenderness Skin General: warm and dry. Normal skin color. Normal skin turgor Neuro General: patient oriented x3, gait normal and no focal neuro deficit Cranial nerves: Yes Equal, round and reactive pupils present Cognition (Neuro): normal cognition Gait exam (Neuro): Normal gait present Sensory Exam: No Sensory deficit (Neuro) Psych Appearance: grossly normal Affect: normal affect Attitude: cooperative Thought process: Normal thought process present Results AMB Hemoglobin A1c AMB Hemoglobin A1c 7.0 % Last Edit by Rosalva Billingsley on 07/07/24 11:15 Results Reviewed Results Reviewed: Laboratory Last Values Hgb A1c (Clinic) 7.0 % (4.0-6.0) H 07/07/24 10:45 Coding Level of Care Code Est Pt Level 4 (49767) Diagnoses Diabetes mellitus E11.9 Additional Codes PHQ-9 - 73071 - PHQ-9 Billing: Yes ([id number]) Assessment & Plan Assessment & Plan (1) Diabetes mellitus: Code(s): E11.9 - Type 2 diabetes mellitus without complications Category: Medical Plan: A1c today is 7.0%, slightly above goal of less than 7.0%. Previous A1c was 6.3%. No hypoglycemic episodes. According to the pharmacy, last refill for metformin was on 11/05/2023 x 90 days. Glipizide 10 mg daily x 90 days was picked up in 03/31/2024. Patient notes he currently has adequate supply of metformin Will increase glipizide to 10 mg twice daily; advised to take as prescribed. Continue to take metformin as prescribed. ADA diet and routine exercise encouraged. Monitor to blood glucose daily. Reports hypoglycemic episode. Follow-up with Ophthalmology as planned. Return in 3 months or sooner with symptoms or concerns. Verbalized understanding and agreed with treatment plan. Orders: Orders AMB Hemoglobin A1c Today Z13.9 - Encounter for screening, unspecified Medications: Changed From metformin 1,000 mg PO BIDWMEAL 30 days 60 tabs 3RF To metformin 1,000 mg PO BIDWMEAL 180 tabs 1RF 90 days From glipizide 10 mg PO DAILY To glipizide 10 mg PO BID 60 tabs 3RF 30 days
[2024-07-07 10:42] VITALS: BP 122/64; PULSE 67; RESP 16; TEMP 36.8; O2SAT 99; BMI 28.3
== END 2024-07-07 10:55 | disposition home or self-care (01) ==
PROVIDERS: PCP Nurse Practitioner Family; Visit Provider Nurse Practitioner Family
DX: E11.9 Type 2 diabetes mellitus without complications (principal); Z13.9 Encounter for screening, unspecified

== ENCOUNTER → 2024-07-07 10:28 | Outpatient (BNVA) | payer OTHER, SELFPAY | PROVIDERS: PCP Nurse Practitioner Family; Visit Provider Nurse Practitioner Family | DX: E11.9 Type 2 diabetes mellitus without complications (principal) | CPT/HCPCS: 83036; 96127 ==

== ENCOUNTER 2024-10-06 09:47 | Outpatient (AMB) | payer OTHER, SELFPAY ==
--- NOTE | 2024-10-06 09:53 | A.OFFPC_ITS ---
Vital Signs 10/06/24 09:57 Height 5 ft 10.47 in Weight 198 lb 8 oz BMI 28.1 BP 120/61 Blood Pressure Location Lt brachial Position Sitting Respiration 16 Pulse 69 Pulse Source Pulse Oximeter Temp 98.1 F Temp Source Oral Pulse Oximetry (%) 99 Oxygen Delivery Method Room Air Intake Visit Reasons: 3mos DM Intake Note: patient here for 3 month DM follow up [employer] Required: No Allergies No Known Allergies Allergy (Verified 10/06/24 10:13) Medication List - Last Reconciled 10/06/24 by Jose Luis Antony CNP glipizide 10 mg PO BID 30 days metformin 1,000 mg PO BIDWMEAL 90 days omeprazole 20 mg PO DAILY 90 days Tobacco use date assessed: 10/06/24 Dental Screening Dental Screen Date: 10/06/24 Did you have a dental visit in the last 12 months?: Yes Did you have a dental problem in the last 6 months where you did not have access to dental care?: No Was dental information given to patient?: Patient has dentist HPI HPI Comments History of Present Illness Details 49-year-old male presents for diabetes f ollow-up. He admits to taking his medications as prescribed without adverse reactions. He admits to making healthy lifestyle changes. He notes that he had an eye exam with [facility] in 09/29/2024. Record not currently available. He offers no complaints and denies acute symptoms at this time [facility] Medical History (Updated 07/07/24 @ 10:43 by Jose Luis Antony CNP) Diabetes mellitus GERD (gastroesophageal reflux disease) Surgical History No pertinent past surgical history Social History Housing: Apartment Patient Tobacco Use Status: Never used Tobacco e-Cigarette/Vaping Use: Never Used Second Hand Smoke Exposure: No service: No Current occupational status: employed Current occupation: [employer] Current occupational exposures/hazards: No Cognitive needs: No Hearing needs: No Vision needs: No Questionnaire Thrive Questionnaire Date Thrive assessed: 07/07/24 I am a: Patient What is your living situation today?: I choose not to answer this question Within the past 12 months, did the food you bought not last and you didn't have the money to get more?: Never true Within the past 12 months, did you worry whether your food would run out before you got money to buy more?: Never true Do you have trouble paying for medicines?: No Do you have trouble getting transportation to medical appointments?: No Do you have trouble paying your heating and electricity bill?: No Do you have trouble taking care of your child, family member or friend?: No Do you have trouble with day-to-day activities such as bathing, preparing meals, shopping, managing finances, etc.?: No Are you currently unemployed and looking for a job?: No Are you interested in more education?: I choose not to answer this question Please select the resources that you would like help with: None Currently or been in a relationship where the following occur: No concerns reported THRIVE Score: 0 GINI-7 AMB Questionnaire GINI-7 Date GINI - 7 assessed: 07/07/24 Source: Developed by Drs. Farhad Garber, Aliza Garcia, Darío Asif and colleagues, with an educational aracelis from [employer]. Review of Systems Const Details: Const Denies chills, Denies fatigue, Denies fever(s), Denies headache(s) and Denies weakness ENT Denies dizziness and Denies headache(s) Card Denies chest pain, Denies lightheadedness, Denies dyspnea and Denies other (Palpitations) Resp Denies cough, Denies dyspnea, Denies wheezing and Denies other ( shortness of breath) GI Denies abdominal pain, Denies melena, Denies hematochezia, Denies change in bowel habits, Denies dyspepsia and Denies nausea Denies hematuria and Denies dysuria Musc Denies abnormal gait, Denies myalgias, Denies arthralgias, Denies numbness and Denies tingling Skin/Breast Denies rash, Denies unusual bruising and Denies wounds Neuro Denies abnormal gait, Denies dizziness, Denies headache(s), Denies memory loss, Denies numbness, Denies Sensory deficit (Neuro), Denies tingling and Denies weakness Psych Denies anxiety, Denies depression, Denies memory loss Endo Denies cold intolerance, Denies fatigue, Denies heat intolerance, Denies polydipsia and Denies polyuria Aller/Immun Denies wheezing Physical exam (Primary Care) Vital Signs: Last Vital Signs Temp 98.1 F 10/06/24 09:57 Pulse 69 10/06/24 09:57 Resp 16 10/06/24 09:57 BP 120/61 10/06/24 09:57 Pulse Ox 99 10/06/24 09:57 Oxygen Delivery Method Room Air 10/06/24 09:57 BMI result Body Mass Index 28.1 Tobacco/Smoking Status: Tobacco use Status Tobacco use date assessed 10/06/24 10/06/24 10:02 Patient Tobacco Use Status Never used Tobacco 10/06/24 09:55 e-Cigarette/Vaping Use Never Used 10/06/24 09:55 Thrive Assessment: Date of Thrive Assessment Date Thrive assessed 07/07/24 10/06/24 09:55 Currently or been in a relationship where the following occur: No concerns reported Const Other: General: no acute distress and well developed Nutritional Appearance: well nourished Orientation/consciousness: patient oriented x3 HENMT Head: Yes normocephalic and Yes atraumatic Eyes General: appearance normal, both eyes and all related structures Pupils: Equal, round and reactive pupils present EOM: EOMs intact bilaterally Resp Effort & Inspection: normal respiratory effort Auscultation: clear to auscultation bilaterally Cardio Rate: regular rate Rhythm: regular rhythm Heart sounds: S1 normal heart sound present, S2 normal heart sound present, no gallops, no murmurs and no rubs GI Palpation (GI): No Abdominal aortic bruit present, Soft to palpation, nontender, No hepatosplenomegaly present and No Rebound tenderness present Auscultation: normal bowel sounds General: Yes no CVA tenderness Back/Spine/Pelvis Back: no CVA tenderness Cervical Spine: cervical ROM normal and No Cervical spine tenderness Thoracic/Lumbar Spine: thoraco-lumbar ROM normal, No pain with thoraco-lumbar ROM, No thoracic spinal tenderness and No lumbar spinal tenderness Extrem General: Yes normal to inspection, No edema and No calf tenderness Skin General: warm and dry. Normal skin color. Normal skin turgor Neuro General: patient oriented x3, gait normal and no focal neuro deficit Cranial nerves: Yes Equal, round and reactive pupils present Cognition (Neuro): normal cognition Gait exam (Neuro): Normal gait present Sensory Exam: No Sensory deficit (Neuro) Psych Appearance: grossly normal Affect: normal affect Attitude: cooperative Thought process: Normal thought process present Results AMB Hemoglobin A1c AMB Hemoglobin A1c 6.2 % Last Edit by Rosalva Billingsley MA on 10/06/24 10:23 Coding Level of Care Code Est Pt Level 3 (74077) Diagnoses Diabetes mellitus E11.9 Laboratory tests ordered as part of a complete physical exam (CPE) Z00.00 Assessment & Plan Assessment & Plan (1) Diabetes mellitus: Code(s): E11.9 - Type 2 diabetes mellitus without complications Category: Medical Plan: A1c today 6.2%, within goal of less than 7.0%. Previous A1c was 7.0%. Continue current treatment regimen. ADA diet and routine exercise encouraged. Will recheck A1c in 3 months. Advised to perform lab work at least 2-3 days before his next visit. Follow-up in 1 month for an extended physical exam or sooner with symptoms or concerns. Verbalized understanding and agreed with treatment plan. (2) Laboratory tests ordered as part of a complete physical exam (CPE): Code(s): Z00.00 - Encounter for general adult medical examination without abnormal findings Category: Medical Plan: Fasting labs ordered as part of a complete physical exam. Advised to fast for at least 10 hours before getting labs drawn. May drink water Verbalized understanding and agreed with treatment plan. Orders: Orders Complete Blood Count Auto Diff Today Z00.00 - Encounter for general adult medical examination without abnormal findings Comprehensive [place]. Panel Fast Today Z00.00 - Encounter for general adult medical examination without abnormal findings Lipid Panel Today Z00.00 - Encounter for general adult medical examination without abnormal findings TSH reflex Free T4 Today Z00.00 - Encounter for general adult medical examination without abnormal findings Microalbumin, Random (w Creat) Today Z00.00 - Encounter for general adult medical examination without abnormal findings UA CC w/rflx Micro + Cult Today Z00.00 - Encounter for general adult medical examination without abnormal findings Vitamin D 25-OH Total Today Z00.00 - Encounter for general adult medical examination without abnormal findings AMB Hemoglobin A1c Today Z13.9 - Encounter for screening, unspecified
[2024-10-06 09:57] VITALS: BP 120/61; PULSE 69; RESP 16; TEMP 36.7; O2SAT 99; BMI 28.1
== END 2024-10-06 10:22 | disposition home or self-care (01) ==
LOC: HO.HMCFM 09:53
PROVIDERS: PCP Nurse Practitioner Family; Visit Provider Nurse Practitioner Family
DX: E11.9 Type 2 diabetes mellitus without complications (principal); Z00.00 Encounter for general adult medical examination without abnormal findings; Z13.9 Encounter for screening, unspecified

== ENCOUNTER → 2024-10-06 09:47 | Outpatient (BNVA) | payer OTHER, SELFPAY | PROVIDERS: PCP Nurse Practitioner Family; Visit Provider Nurse Practitioner Family | DX: E11.9 Type 2 diabetes mellitus without complications (principal) | CPT/HCPCS: 83036 ==

== ENCOUNTER 2025-01-06 15:16 | Outpatient (AMB) | payer OTHER, SELFPAY ==
[2025-01-06 16:07] VITALS: BP 122/70; PULSE 72; TEMP 36.5; O2SAT 97; BMI 28.7
--- NOTE | 2025-01-06 16:07 | AM.OFFWIN_ITS ---
Intake Vital Signs 01/06/25 16:07 Height 5 ft 10 in Weight 200 lb BMI 28.7 BP 122/70 Blood Pressure Location Lt brachial Position Sitting Pulse 72 Pulse Source Pulse Oximeter Temp 97.7 F Temp Source Oral Pulse Oximetry (%) 97 Oxygen Delivery Method Room Air Intake Visit Reasons: EP Back pain Patient Tobacco Use Status: Never used Tobacco [employer] Required: No Allergies No Known Allergies Allergy (Verified 01/06/25 16:11) Do you need a note to return to daycare/school/sports/work: Yes HPI HPI Comments History of Present Illness0 Details History - The patient is a 49-year-old male pres enting with pain in the back when lifting the right arm. - The pain is localized to the right upp er back/rhomboid region and is exacerbated by lifting the right arm and moving the head. - The patient denies any previous occurr ences of this pain and reports no recent injuries or changes in physical activity. - The pain is described as deep and is s uspected to be due to muscle spasm, possibly from sleeping in an awkward position or prolonged head positioning. Physical Exam General: cooperative, healthy appearing and comfortable, patient oriented x3 Head: Yes normal to inspection and Yes normocephalic General nose exam: Normal external nose present Face and sinus: Yes normal facial exam Effort & Inspection: normal respiratory effort and able to speak in complete sentences Back/spine: no TTP along the cervical spine, thoracic spine or lumbar spine cervical, thoracic and lumbar spine normal to inspection cervical ROM normal, thoracic ROM normal, lumbar ROM normal no Cervical, thoracic or lumbar spine tenderness TTP on right upper back, rhomboid area Extremities: moving all extremities normally PFSH Medical History (Updated 01/07/25 @ 07:10 by Jolly Krishnan PA-C) Diabetes mellitus GERD (gastroesophageal reflux disease) Surgical History No pertinent past surgical history Social History Housing: Apartment Patient Tobacco Use Status: Never used Tobacco e-Cigarette/Vaping Use: Never Used Second Hand Smoke Exposure: No service: No Current occupational status: employed Current occupation: [employer] Current occupational exposures/hazards: No Cognitive needs: No Hearing needs: No Vision needs: No Review of Systems Const All systems reviewed & are unremarkable except as noted in HPI and below Physical Exam Vital Signs: Last Vital Signs Temp 97.7 F 01/06/25 16:07 Pulse 72 01/06/25 16:07 BP 122/70 01/06/25 16:07 Pulse Ox 97 01/06/25 16:07 Oxygen Delivery Method Room Air 01/06/25 16:07 BMI result Body Mass Index 28.7 Assessment & Plan Assessment & Plan (1) Muscle spasm of back: Code(s): M62.830 - Muscle spasm of back Plan: Plan Patient was informed and verbally consented to the use of an ambient scribe for clinic note documentation during this visit. 1. Muscle Spasm - Prescribed cyclobenzaprine to be taken every eight hours as needed for muscle relaxation. - Advised to avoid alcohol and driving while taking medication. - Recommended use of heat application and self-massage with a lacrosse ball to alleviate muscle tension. - Suggested taking Aleve for additional pain relief, ensuring no kidney issues. Medications: New cyclobenzaprine 5 mg PO Q8H PRN 20 tabs 0RF Muscle Spasm naproxen 500 mg PO Q12H PRN 20 tabs 0RF pain Coding Level of Care Code Est Pt Level 3 (38426) Diagnoses Muscle spasm of back M62.830
== END 2025-01-06 16:21 | disposition home or self-care (01) ==
PROVIDERS: PCP Nurse Practitioner Family; Visit Provider Physician Assistant
DX: M62.830 Muscle spasm of back (principal)